=== PATIENT | male | born 1950 | race American Indian/Alaskan Native ===

== ENCOUNTER 2019-08-10 18:29 | Inpatient (IN) | payer MEDICARE ==
[2019-08-10] MEDS ORDERED: ZIPRASIDONE MESYLATE 20 MG VIAL IM PRN (18:51)
[2019-08-10] MEDS ORDERED: MELATONIN 5 MG TAB PO PRN (18:51)
[2019-08-11 08:14] LABS: Hematocrit 37.5 % (35.5-45.6); Hemoglobin 12.2 gm/dl (11.8-15.2); Mean Corpuscular HGB Conc 33 % (32-34); Mean Corpuscular Volume 101 fl (84-94); Red Blood Count 3.72 M/mm3 (3.65-5.03)
[2019-08-11 08:42] LABS: Alanine Aminotransferase 9 units/L (7-56); Albumin 3.3 g/dL (3.9-5); BUN/Creatinine Ratio 22; Blood Urea Nitrogen 20 mg/dL (9-20); Calcium 8.5 mg/dL (8.4-10.2); Hemolysis Index 4; LDL Cholesterol,Direct 60 mg/dL (50-130)
[2019-08-11 08:54] LABS: Platelet Count 93 K/mm3 (140-440)
[2019-08-11 09:13] LABS: Chol/HDL Ratio 4.81 %; HDL Cholesterol 22 mg/dL (40-59)
--- NOTE | 2019-08-11 09:36 | History and Physical Report ---
GP History & Physical - History of Present Illness Date of admission: 08/10/19 Date of Examination: 08/11/19 Reason for Admission: Danger to self History of Present Illness: Maximus Young is a 69y/o male patient who was found walking into oncoming traffic according to chart. During my interview the patient this morning. He is lying in bed with his eyes closed. Easily arouses. He never opens his eyes during the interview. He is a/ o x 3. He is irritable. He is avoidant. He says he's "not doing so good." He could not tell me why or why he was brought to the hospital. He says that he was on medications, "but no anymore because my brother wouldn't take me." He denies hallucinations of any kind. When asking about SI/HI. The patient would not respond initially. He then states, "no, but what's with this." When asking the patient about any illicit drug use in his past, he threw his hand up and stated, "I'm not answering any more questions." PAST PSYCHIATRIC HISTORY: Could not obtain PAST MEDICAL HISTORY: Could not obtain Family Psychiatric History: None reported or documented SOCIAL HISTORY Could not obtain REVIEW OF SYSTEMS Could not obtain MENTAL STATUS EXAMINATION General Appearance: Dressed appropriately Behavior: Irritable, avoidant Mood: "not doing so good" Affect: Restricted Speech: Normal tone and pace Thought Process: Goal directed Thought Content: Suicidal Ideation: Denies Homicidal Ideation: Denies Hallucinations: Denies Delusions: None elicited Insight and Judgment: Limited Memory/Cognition: Limited Assessment Schizoaffective Disorder Treatment Plan Patient will be admitted for inpatient psychiatric evaluation, medication adjustment and close monitoring The patient's behavior, mood, sleep and appetite will be closely monitored. Patient will be enrolled in individual and group therapeutic sessions and encouraged to attend. Patient will be provided with a safe and structured environment. Patient's physical health needs will be addressed by the Hospitalist. Hospitalist Consulted Labs including CBC, CMP, Lipid profile and Hemoglobin A1C ordered Social Assessment will be completed and the Clinical Application Manager will work with patient and family to ensure a suitable and safe disposition Medication adjustment will be made as clinically indicated Usual Wellness Denominational/Preservation: Restarted Home medications The patient agreed on the treatment plan, understood the risk, benefit, alternative treatment, potential consequence of no treatment, and gave informed consent. - Certification Statement This is an acknowledgement statement that Maximus Young is a 69y/o male who requires inpatient psychiatric admission for treatment which could reasonably be expected to improve the patient's condition for Schizoaffective Disorder Estimated period of time patient will need to remain in the hospital: [7] Plan for post-hospital care: [Outpatient] Legal Status: Voluntary Reaction to Hospitalization: Accepting Medications and Allergies Allergies Allergy/AdvReac Type Severity Reaction Status Date / Time No Known Allergies Allergy Unverified 08/10/19 18:16 Home Medications Medication Instructions Recorded Confirmed Last Taken Type Apixaban [Eliquis] 5 mg PO BID 08/11/19 08/11/19 Unknown History Budesonide-Formoterol 160-4.5 08/11/19 Unknown History Divalproex ER [DepaKOTE ER] 500 mg PO BID 08/11/19 08/11/19 Unknown History Eliquis 5 mg PO BID 08/11/19 08/11/19 Unknown History Furosemide [Lasix TAB] 40 mg PO BID 08/11/19 08/11/19 Unknown History Metoprolol SUCCINATE ER TAB 200 mg PO DAILY 08/11/19 08/11/19 Unknown History Vitamin B12 1,000 mcg PO DAILY 08/11/19 08/11/19 Unknown History busPIRone [Buspar] 5 mg PO BID 08/11/19 08/11/19 Unknown History lisinopriL [Zestril] 20 mg PO QDAY 08/11/19 08/11/19 Unknown History polyethylene glycoL 3350 [Miralax 17 gram PO DAILY 08/11/19 08/11/19 Unknown History 3350] risperiDONE [RisperDAL] 1 mg PO DAILY 08/11/19 08/11/19 Unknown History risperiDONE [RisperDAL] 2 mg PO HS 08/11/19 08/11/19 Unknown History Active Meds: Active Medications Melatonin (Melatonin) 5 mg PO QHS PRN PRN Reason: Sleep Trazodone HCl (Desyrel) 50 mg PO QHS LIT Ziprasidone (Geodon) 10 mg IM Q6H PRN PRN Reason: Agitation Results - Results Labs/Vitals: Laboratory Last Values WBC 2.6 K/mm3 (4.5-11.0) L 08/11/19 07:23 RBC 3.72 M/mm3 (3.65-5.03) 08/11/19 07:23 Hgb 12.2 gm/dl (11.8-15.2) 08/11/19 07:23 Hct 37.5 % (35.5-45.6) 08/11/19 07:23 MCV 101 fl (84-94) H 08/11/19 07:23 MCH 33 pg (28-32) H 08/11/19 07:23 MCHC 33 % (32-34) 08/11/19 07:23 RDW 17.0 % (13.2-15.2) H 08/11/19 07:23 Plt Count 93 K/mm3 (140-440) L 08/11/19 07:23 [place] % (Auto) Heater Helper 08/11/19 07:23 Seg Neutrophils % Heater Helper 08/11/19 07:23 Sodium 141 mmol/L (137-145) 08/11/19 07:23 Potassium 4.5 mmol/L (3.6-5.0) 08/11/19 07:23 Chloride 106.4 mmol/L (98-107) 08/11/19 07:23 Carbon Dioxide 23 mmol/L (22-30) 08/11/19 07:23 Anion Gap 16 mmol/L 08/11/19 07:23 BUN 20 mg/dL (9-20) 08/11/19 07:23 Creatinine 0.9 mg/dL (0.8-1.5) 08/11/19 07:23 Estimated GFR > 60 ml/min 08/11/19 07:23 BUN/Creatinine Ratio 22 % 08/11/19 07:23 Glucose 83 mg/dL (75-100) 08/11/19 07:23 Hemoglobin A1c 5.5 % (4-6) 08/11/19 07:23 Calcium 8.5 mg/dL (8.4-10.2) 08/11/19 07:23 Total Bilirubin 0.60 mg/dL (0.1-1.2) 08/11/19 07:23 AST 15 units/L (5-40) 08/11/19 07:23 ALT 9 units/L (7-56) 08/11/19 07:23 Alkaline Phosphatase 81 units/L (35-129) 08/11/19 07:23 Total Protein 7.9 g/dL (6.3-8.2) 08/11/19 07: Albumin 3.3 g/dL (3.9-5) L 08/11/19 07: Albumin/Globulin Ratio 0.7 % 08/11/19 07:23 Triglycerides 117 mg/dL (2-149) 08/11/19 07: Cholesterol 106 mg/dL (50-199) 08/11/19 07:23 LDL Cholesterol Direct 60 mg/dL (50-130) 08/11/19: HDL Cholesterol 22 mg/dL (40-59) L 08/11/19 07:23 Cholesterol/HDL Ratio 4.81 % 08/11/19 07: TSH 2.140 mlU/mL (0.270-4.200) 08/11/19 07:23 Physician Certification - Certification Statement Physician Certification Statement: This is an acknowledgement statement that MAXIMUS YOUNG is a 69 year old M who requires inpatient psychiatric admission for treatment which could reasonably be expected to improve the patient's condition for Estimated period of time patient will need to remain in the hospital: [ ] Plan for post-hospital care: [ ]
[2019-08-11] MEDS ORDERED: risperiDONE 0.25 MG TAB PO SCH ×2 (10:00)
[2019-08-11] MEDS: FUROSEMIDE 40 MG TAB PO SCH ×2 (10:53→21:07)
[2019-08-11] MEDS: risperiDONE 1 MG TAB PO SCH ×2 (10:53→21:07)
[2019-08-11] MEDS: busPIRone 5 MG TAB PO SCH ×2 (10:54→21:07)
[2019-08-11] MEDS: LISINOPRIL 20 MG TAB PO SCH (10:54)
[2019-08-11] MEDS: DIVALPROEX ER 500 MG TAB PO SCH ×2 (10:56→21:08)
--- NOTE | 2019-08-11 12:06 | Consultation ---
History of Present Illness - Reason for Consult Consult date: 08/11/19 Hypertension,afib, COPD Requesting physician: ENRIQUE LAMAS - History of Present Illness Maximus Young is a 69y/o male patient who was found walking into oncoming traffic according to chart.He was diagnosed with schizoaffective disorder. He has history of hypertension,atrial fibrillation and COPD. He is being evaluated to manage co-morbidities. Currently denies chest pain or SOB. No fever. Past History Past Medical History: atrial fib, COPD, hypertension, other (Schisophrenia, PTSD) Social history: full code. denies: smoking, alcohol abuse Medications and Allergies Allergies Allergy/AdvReac Type Severity Reaction Status Date / Time No Known Allergies Allergy Unverified 08/10/19 18:16 Home Medications Medication Instructions Recorded Confirmed Last Taken Type Apixaban [Eliquis] 5 mg PO BID 08/11/19 08/15/19 Unknown History Divalproex ER [Depakote ER] 500 mg PO BID 08/11/19 08/15/19 08/14/19 21:47 History Vitamin B12 1,000 mcg PO DAILY 08/11/19 08/15/19 Unknown History busPIRone [Buspar] 5 mg PO BID 08/11/19 08/15/19 08/14/19 21:46 History lisinopriL [Zestril TAB] 20 mg PO QDAY 08/11/19 08/15/19 08/14/19 10:50 History polyethylene glycoL 3350 [Miralax 17 gram PO DAILY 08/11/19 08/15/19 Unknown History 3350] Arformoterol Nebu [Brovana Nebu] 15 mcg IH Q12HRT #30 ml 08/17/19 Unknown Rx Budesonide [Pulmicort Respules] 0.5 mg IH Q12HRT #30 nebu 08/17/19 Unknown Rx Famotidine [Pepcid] 20 mg PO QDAY #30 tablet 08/17/19 Unknown Rx Furosemide [Lasix TAB] 40 mg PO DAILY #30 08/17/19 Unknown Rx Metoprolol Xl [Metoprolol 100 mg PO QDAY #30 tablet 08/17/19 Unknown Rx SUCCINATE ER TAB] Sertraline [Zoloft] 25 mg PO QDAY #30 tablet 08/17/19 Unknown Rx Tamsulosin [Flomax] 0.4 mg PO QDAY #30 capsule 08/17/19 Unknown Rx VALPROIC ACID Liq [DepaKENE Liq] 500 mg PO BID #100 udc 08/17/19 Unknown Rx Active Meds: Active Medications Buspirone HCl (Buspar) 5 mg PO BID [facility] Last Admin: 08/11/19 10:54 Dose: 5 mg Documented by: Divalproex Sodium (Depakote Er) 500 mg PO BID [facility] Last Admin: 08/11/19 10:56 Dose: 500 mg Documented by: Furosemide (Lasix) 40 mg PO BID [facility] Last Admin: 08/11/19 10:53 Dose: 40 mg Documented by: Lisinopril (Zestril) 20 mg PO QDAY [facility] Last Admin: 08/11/19 10:54 Dose: 20 mg Documented by: Melatonin (Melatonin) 5 mg PO QHS PRN PRN Reason: Sleep Risperidone (Risperdal) 1 mg PO BID [facility] Last Admin: 08/11/19 10:53 Dose: 1 mg Documented by: Trazodone HCl (Desyrel) 50 mg PO QHS [facility] Ziprasidone (Geodon) 10 mg IM Q6H PRN PRN Reason: Agitation Review of Systems All systems: negative (No chest pain, no shortness of breath. All other systems reviewed and are negative.) Exam - Constitutional Vitals: Temp Pulse Resp BP Pulse Ox 63 155/82 08/11/19 10:54 08/11/19 10:54 Results - Labs CBC & Chem 7: 08/11/19 07:23 08/11/19 07:23 Labs: Abnormal lab results 08/11/19 08/11/19 Range/Units 07:23 07:23 WBC 2.6 L (4.5-11.0) K/mm3 MCV 101 H (84-94) fl MCH 33 H (28-32) pg RDW 17.0 H (13.2-15.2) % Plt Count 93 L (140-440) K/mm3 Albumin 3.3 L (3.9-5) g/dL HDL Cholesterol 22 L (40-59) mg/dL Assessment and Plan Schizoaffective disorder. Managed by Psychiatry Hypertension Will monitor BP Atrial fibrillation Stable, rate controlled COPD Stable,asymptomatic Thanks for the consult, Dr. Lamas
[2019-08-11] MEDS ORDERED: METOPROLOL SUCCINATE 200 MG PO SCH (12:15)
[2019-08-11] MEDS ORDERED: NON-FORMULARY EACH (Eliquis 5 MG) PO SCH (12:15)
[2019-08-11] MEDS ORDERED: METOPROLOL SUCCINATE 100 MG PO SCH (12:16)
[2019-08-11] MEDS ORDERED: ALBUTEROL 2.5 MG/3 ML NEBU IH PRN (12:16)
[2019-08-11 12:26] LABS: Basophils % (Manual) 0 % (0.0-1.8); Eosinophils % (Manual) 0 % (0.0-4.3); Total Cells Counted 100
[2019-08-11 12:27] LABS: Platelet Estimate Consistent w Auto; RBC Morphology Normal
[2019-08-11] MEDS ORDERED: METOPROLOL SUCCINATE XL 100 MG TAB PO SCH (13:00)
[2019-08-11] MEDS: APIXABAN 5 MG TAB PO SCH ×2 (13:23→21:07)
[2019-08-11] MEDS: CYANOCOBALAMIN (VIT B-12) 1000 MCG TAB PO SCH (13:25)
[2019-08-11] MEDS: traZODone 50 MG TAB PO SCH (21:08)
--- NOTE | 2019-08-12 08:35 | Progress Note ---
Subjective Date of service: 08/12/19 Principal diagnosis: Schizoaffective Disorder Subjective Comment: The patient's medical record was reviewed and the patient's progress was discussed with the nursing staff. The nursing staff states the patient is stubborn and withdrawn. They state the only thing the patient wants to do is eat and sleep. During my interview with the patient, he is lying in bed, with his eyes closed. He is uncooperative. He never opens his eyes. He states to me, "I cant talk. I can't do nothing but lay here." When asking about any hallucinations, he states, "I've had it. I'm done." When asking the patient about any thoughts of self harm or hurting anyone else, he replies, "that's already done." Reason for continued inpatient treatment: The patient appears to have severe underlying depression; he is avoidant, isolative, and only wants to sleep and eat. MENTAL STATUS EXAMINATION General Appearance: Dressed appropriately Behavior: Avoidant. Uncooperative. Poor eye contact Mood: Irritable Affect: Restricted Speech: Normal tone and pace Thought Process: Goal directed Thought Content: Suicidal Ideation: Denies Homicidal Ideation: Denies Hallucinations: Denies Delusions: None elicited Insight and Judgment: Limited Memory/Cognition: Limited Assessment Schizoaffective Disorder Treatment Plan Patient will be admitted for inpatient psychiatric evaluation, medication adjustment and close monitoring The patient's behavior, mood, sleep and appetite will be closely monitored. Patient will be enrolled in individual and group therapeutic sessions and encouraged to attend. Patient will be provided with a safe and structured environment. Patient's physical health needs will be addressed by the Hospitalist. Hospitalist Consulted Labs including CBC, CMP, Lipid profile and Hemoglobin A1C ordered Social Assessment will be completed and the [place] Hydraulic Press Operator will work with patient and family to ensure a suitable and safe disposition Medication adjustment will be made as clinically indicated Usual Wellness Gnosticism/Preservation: Started Zoloft 25mg po to decrease underlying depression The patient agreed on the treatment plan, understood the risk, benefit, alternative treatment, potential consequence of no treatment, and gave informed consent. Estimated period of time patient will need to remain in the hospital: [7] Plan for post-hospital care: [Outpatient] Medications and Allergies Allergies Allergy/AdvReac Type Severity Reaction Status Date / Time No Known Allergies Allergy Unverified 08/10/19 18:16 Home Medications Medication Instructions Recorded Confirmed Last Taken Type Apixaban [Eliquis] 5 mg PO BID 08/11/19 08/11/19 Unknown History Budesonide-Formoterol 160-4.5 08/11/19 Unknown History Divalproex ER [DepaKOTE ER] 500 mg PO BID 08/11/19 08/11/19 Unknown History Eliquis 5 mg PO BID 08/11/19 08/11/19 Unknown History Furosemide [Lasix TAB] 40 mg PO BID 08/11/19 08/11/19 Unknown History Metoprolol SUCCINATE ER TAB 200 mg PO DAILY 08/11/19 08/11/19 Unknown History Vitamin B12 1,000 mcg PO DAILY 08/11/19 08/11/19 Unknown History busPIRone [Buspar] 5 mg PO BID 08/11/19 08/11/19 Unknown History lisinopriL [Zestril] 20 mg PO QDAY 08/11/19 08/11/19 Unknown History polyethylene glycoL 3350 [Miralax 17 gram PO DAILY 08/11/19 08/11/19 Unknown History 3350] risperiDONE [RisperDAL] 1 mg PO DAILY 08/11/19 08/11/19 Unknown History risperiDONE [RisperDAL] 2 mg PO HS 08/11/19 08/11/19 Unknown History Active Meds: Active Medications Albuterol (Proventil) 2.5 mg IH Q4H PRN PRN Reason: Shortness Of Breath Apixaban (Eliquis) 5 mg PO BID [facility] Last Admin: 08/11/19 21:07 Dose: 5 mg Documented by: Buspirone HCl (Buspar) 5 mg PO BID [facility] Last Admin: 08/11/19 21:07 Dose: 5 mg Documented by: Cyanocobalamin (Vitamin B-12) 1,000 mcg PO QDAY [facility] Last Admin: 08/11/19 13:25 Dose: 1,000 mcg Documented by: Divalproex Sodium (Depakote Er) 500 mg PO BID [facility] Last Admin: 08/11/19 21:08 Dose: 500 mg Documented by: Furosemide (Lasix) 40 mg PO BID [facility] Last Admin: 08/11/19 21:07 Dose: 40 mg Documented by: Lisinopril (Zestril) 20 mg PO QDAY [facility] Last Admin: 08/11/19 10:54 Dose: 20 mg Documented by: Melatonin (Melatonin) 5 mg PO QHS PRN PRN Reason: Sleep Metoprolol Succinate (Metoprolol Xl) 200 mg PO QDAY [facility] Risperidone (Risperdal) 1 mg PO BID [facility] Last Admin: 08/11/19 21:07 Dose: 1 mg Documented by: Trazodone HCl (Desyrel) 50 mg PO QHS [facility] Last Admin: 08/11/19 21:08 Dose: 50 mg Documented by: Ziprasidone (Geodon) 10 mg IM Q6H PRN PRN Reason: Agitation Results - Results Labs/Vitals: Laboratory Last Values WBC 2.6 K/mm3 (4.5-11.0) L 08/11/19 07:23 RBC 3.72 M/mm3 (3.65-5.03) 08/11/19 07:23 Hgb 12.2 gm/dl (11.8-15.2) 08/11/19 07:23 Hct 37.5 % (35.5-45.6) 08/11/19 07:23 MCV 101 fl (84-94) H 08/11/19 07:23 MCH 33 pg (28-32) H 08/11/19 07:23 MCHC 33 % (32-34) 08/11/19 07:23 RDW 17.0 % (13.2-15.2) H 08/11/19 07:23 Plt Count 93 K/mm3 (140-440) L 08/11/19 07:23 [place] % (Auto) Transmission Superintendent 08/11/19 07:23 Add Manual Diff Complete 08/11/19 07:23 Total Counted 100 08/11/19 07:23 Seg Neutrophils % Transmission Superintendent 08/11/19 07:23 Seg Neuts % (Manual) 27.0 % (40.0-70.0) L 08/11/19 07:23 Band Neutrophils % 1.0 % 08/11/19 07:23 Lymphocytes % (Manual) 36.0 % (13.4-35.0) H 08/11/19 07:23 Reactive Lymphs % (Man) 4.0 % 08/11/19 07:23 Monocytes % (Manual) 31.0 % (0.0-7.3) H 08/11/19 07:23 Eosinophils % (Manual) 0 % (0.0-4.3) 08/11/19 07:23 Basophils % (Manual) 0 % (0.0-1.8) 08/11/19 07: Metamyelocytes % 1.0 % 08/11/19 07:23 Myelocytes % 0 % 08/11/19 07: Promyelocytes % 0 % 08/11/19 07:23 Blast Cells % 0 % 08/11/19 07: Nucleated RBC % 1.0 % (0.0-0.9) H 08/11/19 07:23 Seg Neutrophils # Man 0.7 K/mm3 (1.8-7.7) L 08/11/19 07:23 Band Neutrophils # 0.0 K/mm3 08/11/19 07: Lymphocytes # (Manual) 0.9 K/mm3 (1.2-5.4) L 08/11/19 07:23 Abs React Lymphs (Man) 0.1 K/mm3 08/11/19 07: Monocytes # (Manual) 0.8 K/mm3 (0.0-0.8) 08/11/19 07:23 Eosinophils # (Manual) 0.0 K/mm3 (0.0-0.4) 08/11/19 07:23 Basophils # (Manual) 0.0 K/mm3 (0.0-0.1) 08/11/19 07: Metamyelocytes # 0.0 K/mm3 08/11/19 07:23 Myelocytes # 0.0 K/mm3 08/11/19 07:23 Promyelocytes # 0.0 K/mm3 08/11/19 07:23 Blast Cells # 0.0 K/mm3 08/11/19 07:23 WBC Morphology Not Reportable 08/11/19 07:23 WBC Morphology TNR 08/11/19 07:23 Hypersegmented Neuts Not Reportable 08/11/19 07:23 Hyposegmented Neuts Not Reportable 08/11/19 07:23 Hypogranular Neuts Not Reportable 08/11/19 07:23 Smudge Cells Not Reportable 08/11/19 07:23 Toxic Granulation Not Reportable 08/11/19 07:23 Toxic Vacuolation Not Reportable 08/11/19 07:23 Dohle Bodies Not Reportable 08/11/19 07:23 Pelger-Huet Anomaly Not Reportable 08/11/19 07:23 Maxwell Rods Not Reportable 08/11/19 07:23 Platelet Estimate Consistent w auto 08/11/19 07:23 Clumped Platelets Not Reportable 08/11/19 07:23 Plt Clumps, EDTA Not Reportable 08/11/19 07:23 Large Platelets Not Reportable 08/11/19 07:23 Giant Platelets Not Reportable 08/11/19 07:23 Platelet Satelliting Not Reportable 08/11/19 07:23 Plt Morphology Comment Not Reportable 08/11/19 07:23 RBC Morphology Normal 08/11/19 07:23 Dimorphic RBCs Not Reportable 08/11/19 07:23 Polychromasia Not Reportable 08/11/19 07:23 Hypochromasia Not Reportable 08/11/19 07:23 Poikilocytosis Not Reportable 08/11/19 07:23 Anisocytosis Not Reportable 08/11/19 07:23 Microcytosis Not Reportable 08/11/19 07:23 Macrocytosis Not Reportable 08/11/19 07:23 Spherocytes Not Reportable 08/11/19 07:23 Pappenheimer Bodies Not Reportable 08/11/19 07:23 Sickle Cells Not Reportable 08/11/19 07:23 Target Cells Not Reportable 08/11/19 07:23 Tear Drop Cells Not Reportable 08/11/19 07:23 Ovalocytes Not Reportable 08/11/19 07:23 Helmet Cells Not Reportable 08/11/19 07:23 [place] Bodies Not Reportable 08/11/19 07:23 [place] Rings Not Reportable 08/11/19 07:23 [place] Cells Not Reportable 08/11/19 07:23 Bite Cells Not Reportable 08/11/19 07:23 Crenated Cell Not Reportable 08/11/19 07:23 Elliptocytes Not Reportable 08/11/19 07:23 Acanthocytes (Spur) Not Reportable 08/11/19 07:23 Rouleaux Not Reportable 08/11/19 07:23 Hemoglobin C Crystals Not Reportable 08/11/19 07:23 Schistocytes Not Reportable 08/11/19 07:23 Malaria parasites Not Reportable 08/11/19 07:23 Davian Bodies Not Reportable 08/11/19 07:23 Hem Pathologist Commnt No 08/11/19 07:23 Sodium 141 mmol/L (137-145) 08/11/19 07:23 Potassium 4.5 mmol/L (3.6-5.0) 08/11/19 07:23 Chloride 106.4 mmol/L (98-107) 08/11/19 07:23 Carbon Dioxide 23 mmol/L (22-30) 08/11/19 07:23 Anion Gap 16 mmol/L 08/11/19 07:23 BUN 20 mg/dL (9-20) 08/11/19 07:23 Creatinine 0.9 mg/dL (0.8-1.5) 08/11/19 07:23 Estimated GFR > 60 ml/min 08/11/19 07:23 BUN/Creatinine Ratio 22 % 08/11/19 07:23 Glucose 83 mg/dL (75-100) 08/11/19 07:23 POC Glucose 192 (70-105) H 08/11/19 18:38 Hemoglobin A1c 5.5 % (4-6) 08/11/19 07:23 Calcium 8.5 mg/dL (8.4-10.2) 08/11/19 07:23 Total Bilirubin 0.60 mg/dL (0.1-1.2) 08/11/19 07:23 AST 15 units/L (5-40) 08/11/19 07:23 ALT 9 units/L (7-56) 08/11/19 07:23 Alkaline Phosphatase 81 units/L (35-129) 08/11/19 07:23 Total Protein 7.9 g/dL (6.3-8.2) 08/11/19 07:23 Albumin 3.3 g/dL (3.9-5) L 08/11/19 07:23 Albumin/Globulin Ratio 0.7 % 08/11/19 07:23 Triglycerides 117 mg/dL (2-149) 08/11/19 07:23 Cholesterol 106 mg/dL (50-199) 08/11/19 07:23 LDL Cholesterol Direct 60 mg/dL (50-130) 08/11/19 07:23 HDL Cholesterol 22 mg/dL (40-59) L 08/11/19 07:23 Cholesterol/HDL Ratio 4.81 % 08/11/19 07:23 TSH 2.140 mlU/mL (0.270-4.200) 08/11/19 07:23 Last Vital Signs Temp 97.3 F L 08/11/19 22:03 Pulse 100 H 08/11/19 22:03 Resp 20 08/11/19 22:03 BP 99/63 08/11/19 22:03 Pulse Ox 96 08/11/19 22:03
[2019-08-12] MEDS ORDERED: VITAMIN B12 1000 MCG PO SCH (10:00)
[2019-08-12] MEDS: FUROSEMIDE 40 MG TAB PO SCH ×2 (11:26→21:26)
[2019-08-12] MEDS: METOPROLOL SUCCINATE XL 100 MG TAB PO SCH (11:26)
[2019-08-12] MEDS: LISINOPRIL 20 MG TAB PO SCH (11:27)
[2019-08-12] MEDS: APIXABAN 5 MG TAB PO SCH ×2 (11:39→21:26)
[2019-08-12] MEDS: DIVALPROEX ER 500 MG TAB PO SCH ×2 (11:39→21:26)
[2019-08-12] MEDS: CYANOCOBALAMIN (VIT B-12) 1000 MCG TAB PO SCH ×2 (11:41→11:54)
[2019-08-12] MEDS: SERTRALINE 25 MG TAB PO SCH ×2 (11:41→11:54)
[2019-08-12] MEDS: busPIRone 5 MG TAB PO SCH ×3 (11:41→21:26)
[2019-08-12] MEDS: risperiDONE 1 MG TAB PO SCH ×3 (11:41→21:26)
[2019-08-12] MEDS: traZODone 50 MG TAB PO SCH (21:26)
--- NOTE | 2019-08-13 08:25 | Progress Note ---
Subjective Date of service: 08/13/19 Principal diagnosis: Schizoaffective Disorder Subjective Comment: The patient's medical record was reviewed and the patient's progress was discussed with the nursing staff. The nursing staff states the patient is irritable, does not want to respond to questions/participate in his care, isolated to self, non compliant with meds, refused breakfast/lunch and does not like to drink fluids either. During my interview with the patient, he is lying in bed, with his eyes closed. He easily arouses but, keeps his eyes closed during the interview. He is oriented x 3. He is withdrawn and avoidant. He states to me, "I'm out. I can't get up," upon entering his room. When asked about SI/HI, the patient replies, "no, but I feel like I'm dying." He then states, "I couldn't breath last night." When asking about any hallucinations, the patient replied, "I think so." He did not provide an answer when asking the patient to explain what he meant. Reason for continued inpatient treatment: The patient appears to have severe underlying depression; he is avoidant, isolative, and has starting refusing meals. The patient also has passive suicidal thoughts. MENTAL STATUS EXAMINATION General Appearance: Dressed appropriately Behavior: Avoidant. Withdrawn. Uncooperative. Poor eye contact Mood: Irritable Affect: Restricted Speech: Normal tone and pace Thought Process: Goal directed Thought Content: Suicidal Ideation: Passive Homicidal Ideation: Denies Hallucinations: Delusions: None elicited Insight and Judgment: Limited Memory/Cognition: Limited Assessment Schizoaffective Disorder Treatment Plan Patient will be admitted for inpatient psychiatric evaluation, medication adjustment and close monitoring The patient's behavior, mood, sleep and appetite will be closely monitored. Patient will be enrolled in individual and group therapeutic sessions and encouraged to attend. Patient will be provided with a safe and structured environment. Patient's physical health needs will be addressed by the Hospitalist. Hospitalist Consulted Labs including CBC, CMP, Lipid profile and Hemoglobin A1C ordered Social Assessment will be completed and the Drill Sergeant will work with patient and family to ensure a suitable and safe disposition Medication adjustment will be made as clinically indicated Usual Wellness Judaism/Preservation: Increased Zoloft 50mg po to decrease underlying depression Will consider Megace if the patient continues to refuse meals The patient agreed on the treatment plan, understood the risk, benefit, alternative treatment, potential consequence of no treatment, and gave informed consent. Estimated period of time patient will need to remain in the hospital: [6] Plan for post-hospital care: [Outpatient] Medications and Allergies Allergies Allergy/AdvReac Type Severity Reaction Status Date / Time No Known Allergies Allergy Unverified 08/10/19 18:16 Home Medications Medication Instructions Recorded Confirmed Last Taken Type Apixaban [Eliquis] 5 mg PO BID 08/11/19 08/11/19 Unknown History Budesonide-Formoterol 160-4.5 08/11/19 Unknown History Divalproex ER [DepaKOTE ER] 500 mg PO BID 08/11/19 08/11/19 Unknown History Eliquis 5 mg PO BID 08/11/19 08/11/19 Unknown History Furosemide [Lasix TAB] 40 mg PO BID 08/11/19 08/11/19 Unknown History Metoprolol SUCCINATE ER TAB 200 mg PO DAILY 08/11/19 08/11/19 Unknown History Vitamin B12 1,000 mcg PO DAILY 08/11/19 08/11/19 Unknown History busPIRone [Buspar] 5 mg PO BID 08/11/19 08/11/19 Unknown History lisinopriL [Zestril] 20 mg PO QDAY 08/11/19 08/11/19 Unknown History polyethylene glycoL 3350 [Miralax 17 gram PO DAILY 08/11/19 08/11/19 Unknown History 3350] risperiDONE [RisperDAL] 1 mg PO DAILY 08/11/19 08/11/19 Unknown History risperiDONE [RisperDAL] 2 mg PO HS 08/11/19 08/11/19 Unknown History Active Meds: Active Medications Albuterol (Proventil) 2.5 mg IH Q4H PRN PRN Reason: Shortness Of Breath Apixaban (Eliquis) 5 mg PO BID [facility] Last Admin: 08/12/19 21:26 Dose: 5 mg Documented by: Buspirone HCl (Buspar) 5 mg PO BID [facility] Last Admin: 08/12/19 21:26 Dose: 5 mg Documented by: Cyanocobalamin (Vitamin B-12) 1,000 mcg PO QDAY [facility] Last Admin: 08/12/19 11:54 Dose: Not Given Documented by: Divalproex Sodium (Depakote Er) 500 mg PO BID [facility] Last Admin: 08/12/19 21:26 Dose: 500 mg Documented by: Furosemide (Lasix) 40 mg PO BID [facility] Last Admin: 08/12/19 21:26 Dose: 40 mg Documented by: Lisinopril (Zestril) 20 mg PO QDAY [facility] Last Admin: 08/12/19 11:27 Dose: Not Given Documented by: Melatonin (Melatonin) 5 mg PO QHS PRN PRN Reason: Sleep Metoprolol Succinate (Metoprolol Xl) 200 mg PO QDAY [facility] Last Admin: 08/12/19 11:26 Dose: Not Given Documented by: Risperidone (Risperdal) 1 mg PO BID [facility] Last Admin: 08/12/19 21:26 Dose: 1 mg Documented by: Sertraline HCl (Zoloft) 25 mg PO QDAY [facility] Last Admin: 08/12/19 11:54 Dose: Not Given Documented by: Trazodone HCl (Desyrel) 50 mg PO QHS [facility] Last Admin: 08/12/19 21:26 Dose: 50 mg Documented by: Ziprasidone (Geodon) 10 mg IM Q6H PRN PRN Reason: Agitation Results - Results Labs/Vitals: Laboratory Last Values WBC 2.6 K/mm3 (4.5-11.0) L 08/11/19 07:23 RBC 3.72 M/mm3 (3.65-5.03) 08/11/19 07:23 Hgb 12.2 gm/dl (11.8-15.2) 08/11/19 07:23 Hct 37.5 % (35.5-45.6) 08/11/19 07:23 MCV 101 fl (84-94) H 08/11/19 07:23 MCH 33 pg (28-32) H 08/11/19 07:23 MCHC 33 % (32-34) 08/11/19 07:23 RDW 17.0 % (13.2-15.2) H 08/11/19 07:23 Plt Count 93 K/mm3 (140-440) L 08/11/19 07:23 [place] % (Auto) Teller Supervisor 08/11/19 07:23 Add Manual Diff Complete 08/11/19 07:23 Total Counted 100 08/11/19 07:23 Seg Neutrophils % Teller Supervisor 08/11/19 07:23 Seg Neuts % (Manual) 27.0 % (40.0-70.0) L 08/11/19 07:23 Band Neutrophils % 1.0 % 08/11/19 07:23 Lymphocytes % (Manual) 36.0 % (13.4-35.0) H 08/11/19 07:23 Reactive Lymphs % (Man) 4.0 % 08/11/19 07:23 Monocytes % (Manual) 31.0 % (0.0-7.3) H 08/11/19 07:23 Eosinophils % (Manual) 0 % (0.0-4.3) 08/11/19 07:23 Basophils % (Manual) 0 % (0.0-1.8) 08/11/19 07: Metamyelocytes % 1.0 % 08/11/19 07: Myelocytes % 0 % 08/11/19 07: Promyelocytes % 0 % 08/11/19 07: Blast Cells % 0 % 08/11/19 07: Nucleated RBC % 1.0 % (0.0-0.9) H 08/11/19 07:23 Seg Neutrophils # Man 0.7 K/mm3 (1.8-7.7) L 08/11/19 07:23 Band Neutrophils # 0.0 K/mm3 08/11/19 07: Lymphocytes # (Manual) 0.9 K/mm3 (1.2-5.4) L 08/11/19 07:23 Abs React Lymphs (Man) 0.1 K/mm3 08/11/19 07: Monocytes # (Manual) 0.8 K/mm3 (0.0-0.8) 08/11/19 07:23 Eosinophils # (Manual) 0.0 K/mm3 (0.0-0.4) 08/11/19 07:23 Basophils # (Manual) 0.0 K/mm3 (0.0-0.1) 08/11/19 07: Metamyelocytes # 0.0 K/mm3 08/11/19 07:23 Myelocytes # 0.0 K/mm3 08/11/19 07:23 Promyelocytes # 0.0 K/mm3 08/11/19 07:23 Blast Cells # 0.0 K/mm3 08/11/19 07:23 WBC Morphology Not Reportable 08/11/19 07:23 WBC Morphology TNR 08/11/19 07:23 Hypersegmented Neuts Not Reportable 08/11/19 07:23 Hyposegmented Neuts Not Reportable 08/11/19 07:23 Hypogranular Neuts Not Reportable 08/11/19 07:23 Smudge Cells Not Reportable 08/11/19 07:23 Toxic Granulation Not Reportable 08/11/19 07:23 Toxic Vacuolation Not Reportable 08/11/19 07:23 Dohle Bodies Not Reportable 08/11/19 07:23 Pelger-Huet Anomaly Not Reportable 08/11/19 07:23 Maxwell Rods Not Reportable 08/11/19 07:23 Platelet Estimate Consistent w auto 08/11/19 07:23 Clumped Platelets Not Reportable 08/11/19 07:23 Plt Clumps, EDTA Not Reportable 08/11/19 07:23 Large Platelets Not Reportable 08/11/19 07:23 Giant Platelets Not Reportable 08/11/19 07:23 Platelet Satelliting Not Reportable 08/11/19 07:23 Plt Morphology Comment Not Reportable 08/11/19 07:23 RBC Morphology Normal 08/11/19 07:23 Dimorphic RBCs Not Reportable 08/11/19 07:23 Polychromasia Not Reportable 08/11/19 07:23 Hypochromasia Not Reportable 08/11/19 07:23 Poikilocytosis Not Reportable 08/11/19 07:23 Anisocytosis Not Reportable 08/11/19 07:23 Microcytosis Not Reportable 08/11/19 07:23 Macrocytosis Not Reportable 08/11/19 07:23 Spherocytes Not Reportable 08/11/19 07:23 Pappenheimer Bodies Not Reportable 08/11/19 07:23 Sickle Cells Not Reportable 08/11/19 07:23 Target Cells Not Reportable 08/11/19 07:23 Tear Drop Cells Not Reportable 08/11/19 07:23 Ovalocytes Not Reportable 08/11/19 07:23 Helmet Cells Not Reportable 08/11/19 07:23 Abraham-[place] Bodies Not Reportable 08/11/19 07:23 [place] Rings Not Reportable 08/11/19 07:23 Christine Cells Not Reportable 08/11/19 07:23 Bite Cells Not Reportable 08/11/19 07:23 Crenated Cell Not Reportable 08/11/19 07:23 Elliptocytes Not Reportable 08/11/19 07:23 Acanthocytes (Spur) Not Reportable 08/11/19 07:23 Rouleaux Not Reportable 08/11/19 07:23 Hemoglobin C Crystals Not Reportable 08/11/19 07:23 Schistocytes Not Reportable 08/11/19 07:23 Malaria parasites Not Reportable 08/11/19 07:23 Davian Bodies Not Reportable 08/11/19 07:23 Hem Pathologist Commnt No 08/11/19 07:23 Sodium 141 mmol/L (137-145) 08/11/19 07:23 Potassium 4.5 mmol/L (3.6-5.0) 08/11/19 07:23 Chloride 106.4 mmol/L (98-107) 08/11/19 07:23 Carbon Dioxide 23 mmol/L (22-30) 08/11/19 07:23 Anion Gap 16 mmol/L 08/11/19 07:23 BUN 20 mg/dL (9-20) 08/11/19 07:23 Creatinine 0.9 mg/dL (0.8-1.5) 08/11/19 07:23 Estimated GFR > 60 ml/min 08/11/19 07:23 BUN/Creatinine Ratio 22 % 08/11/19 07:23 Glucose 83 mg/dL (75-100) 08/11/19 07:23 POC Glucose 192 (70-105) H 08/11/19 18:38 Hemoglobin A1c 5.5 % (4-6) 08/11/19 07:23 Calcium 8.5 mg/dL (8.4-10.2) 08/11/19 07:23 Total Bilirubin 0.60 mg/dL (0.1-1.2) 08/11/19 07:23 AST 15 units/L (5-40) 08/11/19 07:23 ALT 9 units/L (7-56) 08/11/19 07:23 Alkaline Phosphatase 81 units/L (35-129) 08/11/19 07:23 Total Protein 7.9 g/dL (6.3-8.2) 08/11/19 07:23 Albumin 3.3 g/dL (3.9-5) L 08/11/19 07:23 Albumin/Globulin Ratio 0.7 % 08/11/19 07:23 Triglycerides 117 mg/dL (2-149) 08/11/19 07:23 Cholesterol 106 mg/dL (50-199) 08/11/19 07:23 LDL Cholesterol Direct 60 mg/dL (50-130) 08/11/19 07:23 HDL Cholesterol 22 mg/dL (40-59) L 08/11/19 07:23 Cholesterol/HDL Ratio 4.81 % 08/11/19 07:23 TSH 2.140 mlU/mL (0.270-4.200) 08/11/19 07:23 Last Vital Signs Temp 98.6 F 08/12/19 19:40 Pulse 118 H 08/12/19 19:40 Resp 20 08/12/19 19:40 BP 106/65 08/12/19 19:40 Pulse Ox 90 08/12/19 19:40
[2019-08-13] MEDS: METOPROLOL SUCCINATE XL 100 MG TAB PO SCH (09:55)
[2019-08-13] MEDS: LISINOPRIL 20 MG TAB PO SCH (09:56)
[2019-08-13] MEDS: risperiDONE 1 MG TAB PO SCH ×2 (09:57→22:00)
[2019-08-13] MEDS: DIVALPROEX ER 500 MG TAB PO SCH ×2 (09:57→22:01)
[2019-08-13] MEDS: CYANOCOBALAMIN (VIT B-12) 1000 MCG TAB PO SCH (09:57)
[2019-08-13] MEDS: FUROSEMIDE 40 MG TAB PO SCH ×2 (09:57→22:01)
[2019-08-13] MEDS: busPIRone 5 MG TAB PO SCH ×2 (09:57→22:00)
[2019-08-13] MEDS: APIXABAN 5 MG TAB PO SCH ×2 (09:57→22:01)
[2019-08-13] MEDS: SERTRALINE 50 MG TAB PO SCH (09:57)
[2019-08-13] MEDS: traZODone 50 MG TAB PO SCH (22:00)
--- NOTE | 2019-08-14 07:57 | Progress Note ---
Subjective Date of service: 08/14/19 Principal diagnosis: Schizoaffective Disorder Subjective Comment: The patient's medical record was reviewed and the patient's progress was discussed with the nursing staff. The nursing staff states the patient spent the entire evening in his room. He would not interact with staff. He was irritable with staff tried to talk to him. He presented as sleeping the entire shift. During my interview with the patient, he is lying in bed, with his eyes closed. He easily arouses but, but as usual, keeps his eyes closed during the interview. He is oriented x 3. He is withdrawn and avoidant. He states, "not so good" when asking the patient how was he doing. He verbalized being "depressed," when asked to elaborate. The patient denies hallucinations of any kind, stating, "no, just your voice and I see just you." He did not answer when asked about any harmful o r endangering thoughts or feelings. Reason for continued inpatient treatment: The patient appears to have severe underlying depression; he is avoidant, isolative, excessive sleeping, and may be having passive thoughts of dying. MENTAL STATUS EXAMINATION General Appearance: Dressed appropriately Behavior: Avoidant. Withdrawn. Uncooperative. Poor eye contact Mood: Flat Affect: Restricted Speech: Normal tone and pace Thought Process: Goal directed Thought Content: Suicidal Ideation: Passive Homicidal Ideation: Denies Hallucinations: Denies Delusions: None elicited Insight and Judgment: Limited Memory/Cognition: Limited Assessment Schizoaffective Disorder Treatment Plan Patient will be admitted for inpatient psychiatric evaluation, medication adjustment and close monitoring The patient's behavior, mood, sleep and appetite will be closely monitored. Patient will be enrolled in individual and group therapeutic sessions and encouraged to attend. Patient will be provided with a safe and structured environment. Patient's physical health needs will be addressed by the Hospitalist. Hospitalist Consulted Labs including CBC, CMP, Lipid profile and Hemoglobin A1C ordered Valproic Avid level ordered 08/15/2019 Social Assessment will be completed and the Mix Technician will work with patient and family to ensure a suitable and safe disposition Medication adjustment will be made as clinically indicated Usual Wellness Temple/Preservation: Increased Risperidone 2mg po BID to improve mood Increased Depakote ER 500mg po TID The patient agreed on the treatment plan, understood the risk, benefit, alternative treatment, potential consequence of no treatment, and gave informed consent. Estimated period of time patient will need to remain in the hospital: [6] Plan for post-hospital care: [Outpatient] Medications and Allergies Allergies Allergy/AdvReac Type Severity Reaction Status Date / Time No Known Allergies Allergy Unverified 08/10/19 18:16 Home Medications Medication Instructions Recorded Confirmed Last Taken Type Apixaban [Eliquis] 5 mg PO BID 08/11/19 08/11/19 Unknown History Budesonide-Formoterol 160-4.5 2 puff PO BID 08/11/19 08/14/19 Unknown History Divalproex ER [DepaKOTE ER] 500 mg PO BID 08/11/19 08/11/19 Unknown History Eliquis 5 mg PO BID 08/11/19 08/11/19 Unknown History Furosemide [Lasix TAB] 40 mg PO BID 08/11/19 08/11/19 Unknown History Metoprolol SUCCINATE ER TAB 200 mg PO DAILY 08/11/19 08/11/19 Unknown History Vitamin B12 1,000 mcg PO DAILY 08/11/19 08/11/19 Unknown History busPIRone [Buspar] 5 mg PO BID 08/11/19 08/11/19 Unknown History lisinopriL [Zestril] 20 mg PO QDAY 08/11/19 08/11/19 Unknown History polyethylene glycoL 3350 [Miralax 17 gram PO DAILY 08/11/19 08/11/19 Unknown History 3350] risperiDONE [RisperDAL] 1 mg PO DAILY 08/11/19 08/11/19 Unknown History risperiDONE [RisperDAL] 2 mg PO HS 08/11/19 08/11/19 Unknown History Active Meds: Active Medications Albuterol (Proventil) 2.5 mg IH Q4H PRN PRN Reason: Shortness Of Breath Apixaban (Eliquis) 5 mg PO BID [facility] Last Admin: 08/13/19 22:01 Dose: 5 mg Documented by: Buspirone HCl (Buspar) 5 mg PO BID [facility] Last Admin: 08/13/19 22:00 Dose: 5 mg Documented by: Cyanocobalamin (Vitamin B-12) 1,000 mcg PO QDAY [facility] Last Admin: 08/13/19 09:57 Dose: 1,000 mcg Documented by: Divalproex Sodium (Depakote Er) 500 mg PO BID [facility] Last Admin: 08/13/19 22:01 Dose: 500 mg Documented by: Furosemide (Lasix) 40 mg PO BID [facility] Last Admin: 08/13/19 22:01 Dose: 40 mg Documented by: Lisinopril (Zestril) 20 mg PO QDAY [facility] Last Admin: 08/13/19 09:56 Dose: Not Given Documented by: Melatonin (Melatonin) 5 mg PO QHS PRN PRN Reason: Sleep Metoprolol Succinate (Metoprolol Xl) 200 mg PO QDAY [facility] Last Admin: 08/13/19 09:55 Dose: Not Given Documented by: Risperidone (Risperdal) 1 mg PO BID [facility] Last Admin: 08/13/19 22:00 Dose: 1 mg Documented by: Sertraline HCl (Zoloft) 50 mg PO QDAY [facility] Last Admin: 08/13/19 09:57 Dose: 50 mg Documented by: Trazodone HCl (Desyrel) 50 mg PO QHS [facility] Last Admin: 08/13/19 22:00 Dose: 50 mg Documented by: Ziprasidone (Geodon) 10 mg IM Q6H PRN PRN Reason: Agitation Results - Results Labs/Vitals: Laboratory Last Values WBC 2.6 K/mm3 (4.5-11.0) L 08/11/19 07:23 RBC 3.72 M/mm3 (3.65-5.03) 08/11/19 07:23 Hgb 12.2 gm/dl (11.8-15.2) 08/11/19 07:23 Hct 37.5 % (35.5-45.6) 08/11/19 07:23 MCV 101 fl (84-94) H 08/11/19 07:23 MCH 33 pg (28-32) H 08/11/19 07:23 MCHC 33 % (32-34) 08/11/19 07:23 RDW 17.0 % (13.2-15.2) H 08/11/19 07:23 Plt Count 93 K/mm3 (140-440) L 08/11/19 07:23 [place] % (Auto) Clinical Exercise Specialist 08/11/19 07:23 Add Manual Diff Complete 08/11/19 07:23 Total Counted 100 08/11/19 07:23 Seg Neutrophils % Clinical Exercise Specialist 08/11/19 07:23 Seg Neuts % (Manual) 27.0 % (40.0-70.0) L 08/11/19 07:23 Band Neutrophils % 1.0 % 08/11/19 07:23 Lymphocytes % (Manual) 36.0 % (13.4-35.0) H 08/11/19 07:23 Reactive Lymphs % (Man) 4.0 % 08/11/19 07:23 Monocytes % (Manual) 31.0 % (0.0-7.3) H 08/11/19 07:23 Eosinophils % (Manual) 0 % (0.0-4.3) 08/11/19 07:23 Basophils % (Manual) 0 % (0.0-1.8) 08/11/19 07: Metamyelocytes % 1.0 % 08/11/19 07: Myelocytes % 0 % 08/11/19 07: Promyelocytes % 0 % 08/11/19 07: Blast Cells % 0 % 08/11/19 07: Nucleated RBC % 1.0 % (0.0-0.9) H 08/11/19 07:23 Seg Neutrophils # Man 0.7 K/mm3 (1.8-7.7) L 08/11/19 07:23 Band Neutrophils # 0.0 K/mm3 08/11/19 07:23 Lymphocytes # (Manual) 0.9 K/mm3 (1.2-5.4) L 08/11/19 07:23 Abs React Lymphs (Man) 0.1 K/mm3 08/11/19 07:23 Monocytes # (Manual) 0.8 K/mm3 (0.0-0.8) 08/11/19 07:23 Eosinophils # (Manual) 0.0 K/mm3 (0.0-0.4) 08/11/19 07:23 Basophils # (Manual) 0.0 K/mm3 (0.0-0.1) 08/11/19 07: Metamyelocytes # 0.0 K/mm3 08/11/19 07:23 Myelocytes # 0.0 K/mm3 08/11/19 07:23 Promyelocytes # 0.0 K/mm3 08/11/19 07:23 Blast Cells # 0.0 K/mm3 08/11/19 07:23 WBC Morphology Not Reportable 08/11/19 07:23 WBC Morphology TNR 08/11/19 07:23 Hypersegmented Neuts Not Reportable 08/11/19 07:23 Hyposegmented Neuts Not Reportable 08/11/19 07:23 Hypogranular Neuts Not Reportable 08/11/19 07:23 Smudge Cells Not Reportable 08/11/19 07:23 Toxic Granulation Not Reportable 08/11/19 07:23 Toxic Vacuolation Not Reportable 08/11/19 07:23 Dohle Bodies Not Reportable 08/11/19 07:23 Pelger-Huet Anomaly Not Reportable 08/11/19 07:23 Maxwell Rods Not Reportable 08/11/19 07:23 Platelet Estimate Consistent w auto 08/11/19 07:23 Clumped Platelets Not Reportable 08/11/19 07:23 Plt Clumps, EDTA Not Reportable 08/11/19 07:23 Large Platelets Not Reportable 08/11/19 07:23 Giant Platelets Not Reportable 08/11/19 07:23 Platelet Satelliting Not Reportable 08/11/19 07:23 Plt Morphology Comment Not Reportable 08/11/19 07:23 RBC Morphology Normal 08/11/19 07:23 Dimorphic RBCs Not Reportable 08/11/19 07:23 Polychromasia Not Reportable 08/11/19 07:23 Hypochromasia Not Reportable 08/11/19 07:23 Poikilocytosis Not Reportable 08/11/19 07:23 Anisocytosis Not Reportable 08/11/19 07:23 Microcytosis Not Reportable 08/11/19 07:23 Macrocytosis Not Reportable 08/11/19 07:23 Spherocytes Not Reportable 08/11/19 07:23 Pappenheimer Bodies Not Reportable 08/11/19 07:23 Sickle Cells Not Reportable 08/11/19 07:23 Target Cells Not Reportable 08/11/19 07:23 Tear Drop Cells Not Reportable 08/11/19 07:23 Ovalocytes Not Reportable 08/11/19 07:23 Helmet Cells Not Reportable 08/11/19 07:23 [place] Bodies Not Reportable 08/11/19 07:23 [place] Rings Not Reportable 08/11/19 07:23 Christine Cells Not Reportable 05/23/20 07:23 Bite Cells Not Reportable 08/11/19 07:23 Crenated Cell Not Reportable 08/11/19 07:23 Elliptocytes Not Reportable 08/11/19 07:23 Acanthocytes (Spur) Not Reportable 08/11/19 07:23 Rouleaux Not Reportable 08/11/19 07:23 Hemoglobin C Crystals Not Reportable 08/11/19 07:23 Schistocytes Not Reportable 08/11/19 07:23 Malaria parasites Not Reportable 08/11/19 07:23 Davian Bodies Not Reportable 08/11/19 07:23 Hem Pathologist Commnt No 08/11/19 07:23 Sodium 141 mmol/L (137-145) 08/11/19 07:23 Potassium 4.5 mmol/L (3.6-5.0) 08/11/19 07:23 Chloride 106.4 mmol/L (98-107) 08/11/19 07:23 Carbon Dioxide 23 mmol/L (22-30) 08/11/19 07:23 Anion Gap 16 mmol/L 08/11/19 07:23 BUN 20 mg/dL (9-20) 08/11/19 07:23 Creatinine 0.9 mg/dL (0.8-1.5) 08/11/19 07:23 Estimated GFR > 60 ml/min 08/11/19 07:23 BUN/Creatinine Ratio 22 % 08/11/19 07:23 Glucose 83 mg/dL (75-100) 08/11/19 07:23 POC Glucose 192 (70-105) H 08/11/19 18:38 Hemoglobin A1c 5.5 % (4-6) 08/11/19 07:23 Calcium 8.5 mg/dL (8.4-10.2) 08/11/19 07:23 Total Bilirubin 0.60 mg/dL (0.1-1.2) 08/11/19 07:23 AST 15 units/L (5-40) 08/11/19 07:23 ALT 9 units/L (7-56) 08/11/19 07:23 Alkaline Phosphatase 81 units/L (35-129) 08/11/19 07:23 Total Protein 7.9 g/dL (6.3-8.2) 08/11/19 07:23 Albumin 3.3 g/dL (3.9-5) L 08/11/19 07:23 Albumin/Globulin Ratio 0.7 % 08/11/19 07:23 Triglycerides 117 mg/dL (2-149) 08/11/19 07:23 Cholesterol 106 mg/dL (50-199) 08/11/19 07:23 LDL Cholesterol Direct 60 mg/dL (50-130) 08/11/19 07:23 HDL Cholesterol 22 mg/dL (40-59) L 08/11/19 07:23 Cholesterol/HDL Ratio 4.81 % 08/11/19 07:23 TSH 2.140 mlU/mL (0.270-4.200) 08/11/19 07:23 Last Vital Signs Temp 98.6 F 08/12/19 19:40 Pulse 60 08/13/19 09:56 Resp 20 08/12/19 19:40 BP 93/63 08/13/19 09:56 Pulse Ox 90 08/12/19 19:40
[2019-08-14] MEDS: risperiDONE 1 MG TAB PO SCH ×2 (10:49→21:47)
[2019-08-14] MEDS: FUROSEMIDE 40 MG TAB PO SCH ×2 (10:49→21:48)
[2019-08-14] MEDS: SERTRALINE 50 MG TAB PO SCH (10:49)
[2019-08-14] MEDS: DIVALPROEX ER 500 MG TAB PO SCH ×3 (10:49→21:47)
[2019-08-14] MEDS: APIXABAN 5 MG TAB PO SCH ×2 (10:50→21:46)
[2019-08-14] MEDS: busPIRone 5 MG TAB PO SCH ×2 (10:50→21:46)
[2019-08-14] MEDS: LISINOPRIL 20 MG TAB PO SCH (10:50)
[2019-08-14] MEDS: METOPROLOL SUCCINATE XL 100 MG TAB PO SCH (10:51)
[2019-08-14] MEDS: CYANOCOBALAMIN (VIT B-12) 1000 MCG TAB PO SCH (10:52)
[2019-08-14] MEDS: traZODone 50 MG TAB PO SCH ×2 (21:46→21:49)
[2019-08-15 00:55] VITALS: BP 69/42
--- NOTE | 2019-08-15 08:13 | Discharge Summary ---
Providers - Providers Date of Admission: 08/10/19 23:10 Date of discharge: 08/14/19 Attending physician: ENRIQUE LAMAS MD 08/10/19 18:45 Consult to Physician [CONS] Routine Comment: Consulting Provider: NII HOWARD Physician Instructions: Reason For Exam: manage medical conditions Primary care physician: ENRIQUE LAMAS MD Hospitalization Reason for admission: Found walking into oncoming traffic Condition: Critical Hospital course: The patient was provided inpatient psychiatric treatment with safe and supportive environment, group therapy, psychiatric medication, medication adjustment, adverse effect monitor, medical evaluation, medical treatment, social service assessment, social support meeting and placement assessment. The patient was transferred to the medical floor on 08/15/19 for medical stabilization after he was found to be hypotensive and tachycardic. Dis[facility]: / [facility] IP Allergies/Adverse Reactions: Allergies No Known Allergies Allergy (Unverified 08/10/19 18:16) Vital Signs: Last Vital Signs Temp 98.5 F 08/14/19 23:45 Pulse 117 H 08/14/19 23:45 Resp 20 08/14/19 23:45 BP 69/42 08/14/19 23:45 Pulse Ox 86 08/14/19 23:45 Last Lab: Laboratory Last Values WBC 2.6 K/mm3 (4.5-11.0) L 08/11/19 07:23 RBC 3.72 M/mm3 (3.65-5.03) 08/11/19 07:23 Hgb 12.2 gm/dl (11.8-15.2) 08/11/19 07:23 Hct 37.5 % (35.5-45.6) 08/11/19 07:23 MCV 101 fl (84-94) H 08/11/19 07:23 MCH 33 pg (28-32) H 08/11/19 07:23 MCHC 33 % (32-34) 08/11/19 07:23 RDW 17.0 % (13.2-15.2) H 08/11/19 07:23 Plt Count 93 K/mm3 (140-440) L 08/11/19 07:23 [place] % (Auto) Software Administrator 08/11/19 07:23 Add Manual Diff Complete 08/11/19 07:23 Total Counted 100 08/11/19 07:23 Seg Neutrophils % Software Administrator 08/11/19 07:23 Seg Neuts % (Manual) 27.0 % (40.0-70.0) L 08/11/19 07:23 Band Neutrophils % 1.0 % 08/11/19 07:23 Lymphocytes % (Manual) 36.0 % (13.4-35.0) H 08/11/19 07:23 Reactive Lymphs % (Man) 4.0 % 08/11/19 07:23 Monocytes % (Manual) 31.0 % (0.0-7.3) H 08/11/19 07:23 Eosinophils % (Manual) 0 % (0.0-4.3) 08/11/19 07: Basophils % (Manual) 0 % (0.0-1.8) 08/11/19 07: Metamyelocytes % 1.0 % 08/11/19 07: Myelocytes % 0 % 08/11/19 07: Promyelocytes % 0 % 08/11/19 07: Blast Cells % 0 % 08/11/19 07: Nucleated RBC % 1.0 % (0.0-0.9) H 08/11/19 07:23 Seg Neutrophils # Man 0.7 K/mm3 (1.8-7.7) L 08/11/19 07:23 Band Neutrophils # 0.0 K/mm3 08/11/19 07:23 Lymphocytes # (Manual) 0.9 K/mm3 (1.2-5.4) L 08/11/19 07:23 Abs React Lymphs (Man) 0.1 K/mm3 08/11/19 07:23 Monocytes # (Manual) 0.8 K/mm3 (0.0-0.8) 08/11/19 07:23 Eosinophils # (Manual) 0.0 K/mm3 (0.0-0.4) 08/11/19 07:23 Basophils # (Manual) 0.0 K/mm3 (0.0-0.1) 08/11/19 07:23 Metamyelocytes # 0.0 K/mm3 08/11/19 07:23 Myelocytes # 0.0 K/mm3 08/11/19 07:23 Promyelocytes # 0.0 K/mm3 08/11/19 07:23 Blast Cells # 0.0 K/mm3 08/11/19 07:23 WBC Morphology Not Reportable 08/11/19 07:23 WBC Morphology TNR 08/11/19 07:23 Hypersegmented Neuts Not Reportable 08/11/19 07:23 Hyposegmented Neuts Not Reportable 08/11/19 07:23 Hypogranular Neuts Not Reportable 08/11/19 07:23 Smudge Cells Not Reportable 08/11/19 07:23 Toxic Granulation Not Reportable 08/11/19 07:23 Toxic Vacuolation Not Reportable 08/11/19 07:23 Dohle Bodies Not Reportable 08/11/19 07:23 Pelger-Huet Anomaly Not Reportable 08/11/19 07:23 Maxwell Rods Not Reportable 08/11/19 07:23 Platelet Estimate Consistent w auto 08/11/19 07:23 Clumped Platelets Not Reportable 08/11/19 07:23 Plt Clumps, EDTA Not Reportable 08/11/19 07:23 Large Platelets Not Reportable 08/11/19 07:23 Giant Platelets Not Reportable 08/11/19 07:23 Platelet Satelliting Not Reportable 08/11/19 07:23 Plt Morphology Comment Not Reportable 08/11/19 07:23 RBC Morphology Normal 08/11/19 07:23 Dimorphic RBCs Not Reportable 08/11/19 07:23 Polychromasia Not Reportable 08/11/19 07:23 Hypochromasia Not Reportable 08/11/19 07:23 Poikilocytosis Not Reportable 08/11/19 07:23 Anisocytosis Not Reportable 08/11/19 07:23 Microcytosis Not Reportable 08/11/19 07:23 Macrocytosis Not Reportable 08/11/19 07:23 Spherocytes Not Reportable 08/11/19 07:23 Pappenheimer Bodies Not Reportable 08/11/19 07:23 Sickle Cells Not Reportable 08/11/19 07:23 Target Cells Not Reportable 08/11/19 07:23 Tear Drop Cells Not Reportable 08/11/19 07:23 Ovalocytes Not Reportable 08/11/19 07:23 Helmet Cells Not Reportable 08/11/19 07:23 [place] Bodies Not Reportable 08/11/19 07:23 [place] Rings Not Reportable 08/11/19 07:23 Julian Cells Not Reportable 08/11/19 07:23 Bite Cells Not Reportable 08/11/19 07:23 Crenated Cell Not Reportable 08/11/19 07:23 Elliptocytes Not Reportable 08/11/19 07:23 Acanthocytes (Spur) Not Reportable 08/11/19 07:23 Rouleaux Not Reportable 08/11/19 07:23 Hemoglobin C Crystals Not Reportable 08/11/19 07:23 Schistocytes Not Reportable 08/11/19 07:23 Malaria parasites Not Reportable 08/11/19 07:23 Davian Bodies Not Reportable 08/11/19 07:23 Hem Pathologist Commnt No 08/11/19 07:23 Sodium 141 mmol/L (137-145) 08/11/19 07:23 Potassium 4.5 mmol/L (3.6-5.0) 08/11/19 07:23 Chloride 106.4 mmol/L (98-107) 08/11/19 07:23 Carbon Dioxide 23 mmol/L (22-30) 08/11/19 07:23 Anion Gap 16 mmol/L 08/11/19 07:23 BUN 20 mg/dL (9-20) 08/11/19 07:23 Creatinine 0.9 mg/dL (0.8-1.5) 08/11/19 07:23 Estimated GFR > 60 ml/min 08/11/19 07:23 BUN/Creatinine Ratio 22 % 08/11/19 07:23 Glucose 83 mg/dL (75-100) 08/11/19 07:23 POC Glucose 192 (70-105) H 08/11/19 18:38 Hemoglobin A1c 5.5 % (4-6) 08/11/19 07:23 Calcium 8.5 mg/dL (8.4-10.2) 08/11/19 07:23 Total Bilirubin 0.60 mg/dL (0.1-1.2) 08/11/19 07:23 AST 15 units/L (5-40) 08/11/19 07:23 ALT 9 units/L (7-56) 08/11/19 07:23 Alkaline Phosphatase 81 units/L (35-129) 08/11/19 07:23 Total Protein 7.9 g/dL (6.3-8.2) 08/11/19 07:23 Albumin 3.3 g/dL (3.9-5) L 08/11/19 07:23 Albumin/Globulin Ratio 0.7 % 08/11/19 07:23 Triglycerides 117 mg/dL (2-149) 08/11/19 07:23 Cholesterol 106 mg/dL (50-199) 08/11/19 07:23 LDL Cholesterol Direct 60 mg/dL (50-130) 08/11/19 07:23 HDL Cholesterol 22 mg/dL (40-59) L 08/11/19 07:23 Cholesterol/HDL Ratio 4.81 % 08/11/19 07:23 TSH 2.140 mlU/mL (0.270-4.200) 08/11/19 07:23 Core Measure Documentation - Palliative Care Palliative Care/ Comfort Measures: Not Applicable - Core Measures Any of the following diagnoses?: none Exam - Constitutional Vitals: Temp Pulse Resp BP Pulse Ox 98.5 F 117 H 20 69/42 86 08/14/19 23:45 08/14/19 23:45 08/14/19 23:45 08/14/19 23:45 08/14/19 23:45 Plan Activity: advance as tolerated Weight Bearing Status: Weight Bear as Tolerated Follow up with: ENRIQUE LAMAS MD [Primary Care Provider] - 7 Days
== END 2019-08-14 23:50 | disposition short-term general hospital (02) | DRG 885 ==
LOC: 3A 18:29 → UNDOADMIN 18:29 → 5A 23:10
PROVIDERS: ADMIT Psychiatry & Neurology Psychiatry; ATTEND Psychiatry & Neurology Psychiatry
DX: F20.9 Schizophrenia, unspecified (principal); J44.9 Chronic obstructive pulmonary disease, unspecified; I10 Essential (primary) hypertension; I48.91 Unspecified atrial fibrillation; F43.10 Post-traumatic stress disorder, unspecified; I95.9 Hypotension, unspecified
CPT/HCPCS: 36415; 71045; 80048; 80053; 80061; 80320; 82962; 83036; 84443; 85007; 85025; 93005; 96361; 96374; 96375; G0378; G0480; J7040

== ENCOUNTER 2019-08-14 22:25 | Inpatient (IN) | payer MEDICARE ==
[2019-08-15] MEDS ORDERED: ACETAMINOPHEN 325 MG TAB PO PRN (00:25)
[2019-08-15] MEDS ORDERED: MAGNESIUM HYDROXIDE (MOM) ORAL LIQD UDC PO PRN (00:25)
[2019-08-15] MEDS ORDERED: ONDANSETRON 4 MG/2 ML INJ IV PRN (00:25)
--- NOTE | 2019-08-15 01:13 | History and Physical Report ---
History of Present Illness Date of examination: 08/15/19 Date of admission: 08/15/19 00:07 Chief complaint: Low blood pressure History of present illness: 69-year-old male with known history of schizophrenia who has been on admission in the [facility] since 08/10/2019 for psychological evaluation. He has been found walking into oncoming traffic according to his record. He is being admitted from the [facility] to the medical unit because of low blood p ressure. Call received from the psychiatrist requesting transfer to medical care in view of the hypotension. Blood pressure was said to be 60s systolic and 40s diastolic. Patient has been refusing oral intake. IV fluid not done in the [facility]. Patient appears slightly agitated and states he wants to . He also appears intermittently confused. He also initially declined getting an IV line placed by the medical staff. However I agreed to getting IV fluid upon further counseling. Patient cannot give me any good history. Past History Past Medical History: atrial fib, other (Sleep apnea, PTSD, schizophrenia, cardiomyopathy.) Past Surgical History: No surgical history Social history: other (Resides at an assisted living facility) Family history: no significant family history Medications and Allergies Allergies Allergy/AdvReac Type Severity Reaction Status Date / Time No Known Allergies Allergy Unverified 08/10/19 18:16 Home Medications Medication Instructions Recorded Confirmed Last Taken Type Apixaban [Eliquis] 5 mg PO BID 08/11/19 08/11/19 Unknown History Budesonide-Formoterol 160-4.5 2 puff PO BID 08/11/19 08/14/19 Unknown History Divalproex ER [DepaKOTE ER] 500 mg PO BID 08/11/19 08/11/19 Unknown History Eliquis 5 mg PO BID 08/11/19 08/11/19 Unknown History Furosemide [Lasix TAB] 40 mg PO BID 08/11/19 08/11/19 Unknown History Metoprolol SUCCINATE ER TAB 200 mg PO DAILY 08/11/19 08/11/19 Unknown History Vitamin B12 1,000 mcg PO DAILY 08/11/19 08/11/19 Unknown History busPIRone [Buspar] 5 mg PO BID 08/11/19 08/11/19 Unknown History lisinopriL [Zestril] 20 mg PO QDAY 08/11/19 08/11/19 Unknown History polyethylene glycoL 3350 [Miralax 17 gram PO DAILY 08/11/19 08/11/19 Unknown History 3350] risperiDONE [RisperDAL] 1 mg PO DAILY 08/11/19 08/11/19 Unknown History risperiDONE [RisperDAL] 2 mg PO HS 08/11/19 08/11/19 Unknown History Active Meds: Active Medications Acetaminophen (Tylenol) 650 mg PO Q6H PRN PRN Reason: Pain MILD(1-3)/Fever >100.5/[place] Heparin Sodium (Porcine) (Heparin) 5,000 unit SUB-Q Q8HR LIT Sodium Chloride (Nacl 0.9% 1000 Ml) 1,000 mls @ 125 mls/hr IV DIRECT LIT Magnesium Hydroxide (Milk Of Magnesia) 30 ml PO Q4H PRN PRN Reason: Constipation Ondansetron HCl (Zofran) 4 mg IV Q8H PRN PRN Reason: Nausea And Vomiting Sodium Chloride (Sodium Chloride Flush Syringe 10 Ml) 10 ml IV BID LIT Sodium Chloride (Sodium Chloride Flush Syringe 10 Ml) 10 ml IV PRN PRN PRN Reason: LINE FLUSH Review of Systems ROS unobtainable: due to mental status Exam - Constitutional Vitals: Temp Pulse Resp BP Pulse Ox 97.7 F 08/15/19 00:00 General appearance: Present: no acute distress, well-nourished, other (Dry oral mucosa) - EENT Eyes: Present: PERRL, EOM intact ENT: hearing intact, clear oral mucosa, dentition normal - Neck Neck: Present: supple, normal ROM - Respiratory Respiratory effort: normal Respiratory: bilateral: CTA - Cardiovascular Rhythm: irregularly irregular (Slightly tachycardic) Heart Sounds: Present: S1 & S2 - Extremities Extremities: no ischemia, pulses intact, pulses symmetrical, No edema, Full ROM Peripheral Pulses: within normal limits - Abdominal General gastrointestinal: Present: soft, non-tender, non-distended, normal bowel sounds - Integumentary Integumentary: Present: clear, warm, dry - Psychiatric Psychiatric: agitated (Intermittently agitated) - Neurologic Neurologic: CNII-XII intact, moves all extremities Assessment and Plan - Patient Problems (1) Hypotension Current Visit: Yes Status: Acute Plan to address problem: Possibly secondary to dehydration. Patient be placed on IV fluid. Will monitor vital signs closely. (2) Atrial fibrillation Current Visit: No Status: Acute Plan to address problem: Rate currently controlled. Patient on anticoagulation. (3) Schizophrenia Current Visit: No Status: Acute Plan to address problem: We will continue patient's routine home medications. Will appreciate follow-up by psychiatrist (4) DVT prophylaxis Current Visit: Yes Status: Acute Plan to address problem: Patient currently on anticoagulation. (5) Full code status Current Visit: Yes Status: Acute
[2019-08-15] MEDS: SODIUM CHLORIDE 0.9% 1000 ML 1,000 ML IV SCH ×2 (01:15→14:32)
[2019-08-15] MEDS ORDERED: SODIUM CHLORIDE 0.9% 500 ML 500 ML IV ONE (01:45)
[2019-08-15 02:53] LABS: Hematocrit 35.1 % (35.5-45.6); Hemoglobin 11.5 gm/dl (11.8-15.2); Mean Corpuscular HGB Conc 33 % (32-34); Mean Corpuscular Volume 100 fl (84-94); Red Cell Distribution Width 16.8 % (13.2-15.2)
[2019-08-15 02:56] LABS: Platelet Count 94 K/mm3 (140-440)
[2019-08-15 03:06] LABS: Calcium 8.7 mg/dL (8.4-10.2)
[2019-08-15] MEDS: HEPARIN 5,000 UNIT/1 ML VIAL SUB-Q SCH ×3 (06:38→22:33)
[2019-08-15 06:56] LABS: Basophils % (Manual) 0 % (0.0-1.8); Eosinophils % (Manual) 0 % (0.0-4.3); Total Cells Counted 100
[2019-08-15 06:57] LABS: Platelet Estimate Consistent w Auto; Spherocytes Rare
--- NOTE | 2019-08-15 09:37 | Consultation ---
History of Present Illness - Reason for Consult Consult date: 08/15/19 Reason for consult: depression - History of Present Psychiatric Illness The patient's medical record was reviewed and the patient's progress was discussed with the nursing staff. History of Present Illness: Maximus Young is a 69y/o male patient who is known to me from the [facility]. He was initially admitted to the [facility] because he was found walking into oncoming traffic according to chart. The patient was transferred to ICU for hypotension. I attempted to interview the patient this morning. He is somnolent and could not be aroused for the interview. PAST PSYCHIATRIC HISTORY: Could not obtain PAST MEDICAL HISTORY: Could not obtain Family Psychiatric History: None reported or documented SOCIAL HISTORY Could not obtain REVIEW OF SYSTEMS Could not obtain MENTAL STATUS EXAMINATION Unable to complete Assessment Schizoaffective Disorder Plan Medication Depacon 500mg IV q 12 hours Sitter: Defer to primary Medical: Per primary Plan: TBD Will continue to follow. Thank you for this consult. Medications and Allergies Allergies Allergy/AdvReac Type Severity Reaction Status Date / Time No Known Allergies Allergy Unverified 08/10/19 18:16 Home Medications Medication Instructions Recorded Confirmed Last Taken Type Apixaban [Eliquis] 5 mg PO BID 08/11/19 08/15/19 Unknown History Budesonide-Formoterol 160-4.5 2 puff PO BID 08/11/19 08/15/19 Unknown History Divalproex ER [DepaKOTE ER] 500 mg PO BID 08/11/19 08/15/19 08/14/19 21:47 History Eliquis 5 mg PO BID 08/11/19 08/15/19 Unknown History Furosemide [Lasix TAB] 40 mg PO BID 08/11/19 08/15/19 08/14/19 21:48 History Metoprolol SUCCINATE ER TAB 200 mg PO DAILY 08/11/19 08/15/19 Unknown History Vitamin B12 1,000 mcg PO DAILY 08/11/19 08/15/19 Unknown History busPIRone [Buspar] 5 mg PO BID 08/11/19 08/15/19 08/14/19 21:46 History lisinopriL [Zestril] 20 mg PO QDAY 08/11/19 08/15/19 08/14/19 10:50 History polyethylene glycoL 3350 [Miralax 17 gram PO DAILY 08/11/19 08/15/19 Unknown History 3350] risperiDONE [RisperDAL] 1 mg PO DAILY 08/11/19 08/15/19 Unknown History risperiDONE [RisperDAL] 2 mg PO HS 08/11/19 08/15/19 Unknown History Active Meds: Active Medications Acetaminophen (Tylenol) 650 mg PO Q6H PRN PRN Reason: Pain MILD(1-3)/Fever >100.5/[place] Heparin Sodium (Porcine) (Heparin) 5,000 unit SUB-Q Q8HR [facility] Last Admin: 08/15/19 06:38 Dose: 5,000 unit Documented by: Sodium Chloride (Nacl 0.9% 1000 Ml) 1,000 mls @ 125 mls/hr IV DIRECT [facility] Last Admin: 08/15/19 01:15 Dose: 125 mls/hr Documented by: Magnesium Hydroxide (Milk Of Magnesia) 30 ml PO Q4H PRN PRN Reason: Constipation Ondansetron HCl (Zofran) 4 mg IV Q8H PRN PRN Reason: Nausea And Vomiting Sodium Chloride (Sodium Chloride Flush Syringe 10 Ml) 10 ml IV BID LIT Sodium Chloride (Sodium Chloride Flush Syringe 10 Ml) 10 ml IV PRN PRN PRN Reason: LINE FLUSH Mental Status Exam - Vital signs Last Vital Signs Temp 97.8 F 08/15/19 08:00 Pulse 104 H 08/15/19 06:31 Resp 14 08/15/19 06:31 BP 100/61 08/15/19 06:31 Pulse Ox 95 08/15/19 06:31 Results Result Diagrams: 08/15/19 02:36 08/15/19 02:36 Abnormal lab results 08/15/19 08/15/19 Range/Units 02:36 02:36 RBC 3.50 L (3.65-5.03) M/mm3 Hgb 11.5 L (11.8-15.2) gm/dl Hct 35.1 L (35.5-45.6) % MCV 100 H (84-94) fl MCH 33 H (28-32) pg RDW 16.8 H (13.2-15.2) % Plt Count 94 L (140-440) K/mm3 Seg Neuts % (Manual) 24.0 L (40.0-70.0) % Lymphocytes % (Manual) 64.0 H (13.4-35.0) % Monocytes % (Manual) 12.0 H (0.0-7.3) % Seg Neutrophils # Man 1.2 L (1.8-7.7) K/mm3 Chloride 95.7 L (98-107) mmol/L BUN 35 H (9-20) mg/dL Creatinine 2.0 H D (0.8-1.5) mg/dL All other labs normal.
[2019-08-15] MEDS: VALPROATE SODIUM 500 MG in SODIUM CHLORIDE 0.9% 100 ML IV SCH ×2 (10:43→23:43)
--- NOTE | 2019-08-15 12:14 | Event Note ---
Date: 08/15/19 Check BMP Considering starting on Fluids. urology consulted due to Urinary obstruction.
--- NOTE | 2019-08-15 14:27 | Consultation ---
History of Present Illness Consult date: 08/15/19 Requesting physician: NAREN ROTHMAN Reason for consult: other (Hypotension) History of present illness: PULMONARY/CCM CONSULT NOTE (Full dictation # [id number]) Please see dictated notes for full details Past History Past Medical History: atrial fib, other (Sleep apnea, PTSD, schizophrenia, cardiomyopathy.) Past Surgical History: No surgical history Social history: other (Resides at an assisted living facility) Family history: no significant family history Medications and Allergies Allergies Allergy/AdvReac Type Severity Reaction Status Date / Time No Known Allergies Allergy Unverified 08/10/19 18:16 Home Medications Medication Instructions Recorded Confirmed Last Taken Type Apixaban [Eliquis] 5 mg PO BID 08/11/19 08/15/19 Unknown History Budesonide-Formoterol 160-4.5 2 puff PO BID 08/11/19 08/15/19 Unknown History Divalproex ER [DepaKOTE ER] 500 mg PO BID 08/11/19 08/15/19 08/14/19 21:47 History Eliquis 5 mg PO BID 08/11/19 08/15/19 Unknown History Furosemide [Lasix TAB] 40 mg PO BID 08/11/19 08/15/19 08/14/19 21:48 History Metoprolol SUCCINATE ER TAB 200 mg PO DAILY 08/11/19 08/15/19 Unknown History Vitamin B12 1,000 mcg PO DAILY 08/11/19 08/15/19 Unknown History busPIRone [Buspar] 5 mg PO BID 08/11/19 08/15/19 08/14/19 21:46 History lisinopriL [Zestril] 20 mg PO QDAY 08/11/19 08/15/19 08/14/19 10:50 History polyethylene glycoL 3350 [Miralax 17 gram PO DAILY 08/11/19 08/15/19 Unknown History 3350] risperiDONE [RisperDAL] 1 mg PO DAILY 08/11/19 08/15/19 Unknown History risperiDONE [RisperDAL] 2 mg PO HS 08/11/19 08/15/19 Unknown History Active Meds: Active Medications Acetaminophen (Tylenol) 650 mg PO Q6H PRN PRN Reason: Pain MILD(1-3)/Fever >100.5/[place] Heparin Sodium (Porcine) (Heparin) 5,000 unit SUB-Q Q8HR [facility] Last Admin: 08/15/19 14:15 Dose: 5,000 unit Documented by: Sodium Chloride (Nacl 0.9% 1000 Ml) 1,000 mls @ 125 mls/hr IV DIRECT [facility] Last Admin: 08/15/19 01:15 Dose: 125 mls/hr Documented by: Valproate Sodium 500 mg/ (Sodium Chloride) 105 mls @ 100 mls/hr IV Q12HR [facility] Last Admin: 08/15/19 10:43 Dose: 100 mls/hr Documented by: Magnesium Hydroxide (Milk Of Magnesia) 30 ml PO Q4H PRN PRN Reason: Constipation Ondansetron HCl (Zofran) 4 mg IV Q8H PRN PRN Reason: Nausea And Vomiting Sodium Chloride (Sodium Chloride Flush Syringe 10 Ml) 10 ml IV BID LIT Sodium Chloride (Sodium Chloride Flush Syringe 10 Ml) 10 ml IV PRN PRN PRN Reason: LINE FLUSH Physical Examination Vital signs: Vital Signs Temp 97.7 F 08/15/19 00:00 Results - Laboratory Findings CBC and BMP: 08/15/19 02:36 08/15/19 14:37 Abnormal lab findings: Abnormal Labs 08/15/19 08/15/19 02:36 02:36 RBC 3.50 L Hgb 11.5 L Hct 35.1 L MCV 100 H MCH 33 H RDW 16.8 H Plt Count 94 L Seg Neuts % (Manual) 24.0 L Lymphocytes % (Manual) 64.0 H Monocytes % (Manual) 12.0 H Seg Neutrophils # Man 1.2 L Chloride 95.7 L BUN 35 H Creatinine 2.0 H D
[2019-08-15 15:22] LABS: Calcium 8.1 mg/dL (8.4-10.2)
--- NOTE | 2019-08-15 17:23 | XRay Report ---
CHEST 1 VIEW INDICATION: MAIN: Acute Hypoxemic Resp Failure COPD; . COMPARISON: 08/10/2019 FINDINGS: Support devices: None. Heart: Normal. Lungs/Pleura: No acute pulmonary or pleural findings. IMPRESSION: 1. No acute findings. Signer Name: Vicente Mills MD Signed: 08/15/2019 5:18 PM Workstation Name: [id number]
--- NOTE | 2019-08-15 17:37 | Consultation ---
History of Present Illness - Reason for Consult Consult date: 08/15/19 - History of Present Illness retention (pvr 600cc) 69-year-old male with known history of schizophrenia who has been on admission in the [facility] since 08/10/2019 for psychological evaluation. He has been found walking into oncoming traffic according to his record. He is being admitted from the [facility] to the medical unit because of low blood pressure. Call received from the psychiatrist requesting transfer to medical care in view of the hypotension. Blood pressure was said to be 60s systolic and 40s diastolic. Patient has been refusing oral intake. IV fluid not done in the [facility] unit. Patient appears slightly agitated and states he wants to . He also appears intermittently confused. He also initially declined getting an IV line placed by the medical staff. Patient cannot give me any good history. called---nurse unable to place lozoya large abd scar (?appy)--- pt not sure wire lozoya 16f barrow tip with kieran colored urine a/p BPH retention start flomax 1qd home with lozoya f/u in office Past History Past Medical History: atrial fib, other (Sleep apnea, PTSD, schizophrenia, cardiomyopathy.) Past Surgical History: No surgical history Social history: other (Resides at an assisted living facility) Family history: no significant family history Medications and Allergies Allergies Allergy/AdvReac Type Severity Reaction Status Date / Time No Known Allergies Allergy Unverified 08/10/19 18:16 Home Medications Medication Instructions Recorded Confirmed Last Taken Type Apixaban [Eliquis] 5 mg PO BID 08/11/19 08/15/19 Unknown History Budesonide-Formoterol 160-4.5 2 puff PO BID 08/11/19 08/15/19 Unknown History Divalproex ER [DepaKOTE ER] 500 mg PO BID 08/11/19 08/15/19 08/14/19 21:47 History Eliquis 5 mg PO BID 08/11/19 08/15/19 Unknown History Furosemide [Lasix TAB] 40 mg PO BID 08/11/19 08/15/19 08/14/19 21:48 History Metoprolol SUCCINATE ER TAB 200 mg PO DAILY 08/11/19 08/15/19 Unknown History Vitamin B12 1,000 mcg PO DAILY 05/23/20 05/27/20 Unknown History busPIRone [Buspar] 5 mg PO BID 08/11/19 08/15/19 08/14/19 21:46 History lisinopriL [Zestril] 20 mg PO QDAY 08/11/19 08/15/19 08/14/19 10:50 History polyethylene glycoL 3350 [Miralax 17 gram PO DAILY 08/11/19 08/15/19 Unknown History 3350] risperiDONE [RisperDAL] 1 mg PO DAILY 08/11/19 08/15/19 Unknown History risperiDONE [RisperDAL] 2 mg PO HS 08/11/19 08/15/19 Unknown History Active Meds: Active Medications Acetaminophen (Tylenol) 650 mg PO Q6H PRN PRN Reason: Pain MILD(1-3)/Fever >100.5/[place] Famotidine (Pepcid) 20 mg PO QDAY [facility] Heparin Sodium (Porcine) (Heparin) 5,000 unit SUB-Q Q8HR [facility] Last Admin: 08/15/19 14:15 Dose: 5,000 unit Documented by: Sodium Chloride (Nacl 0.9% 1000 Ml) 1,000 mls @ 125 mls/hr IV DIRECT [facility] Last Admin: 08/15/19 14:32 Dose: 125 mls/hr Documented by: Valproate Sodium 500 mg/ (Sodium Chloride) 105 mls @ 100 mls/hr IV Q12HR [facility] Last Admin: 08/15/19 10:43 Dose: 100 mls/hr Documented by: Magnesium Hydroxide (Milk Of Magnesia) 30 ml PO Q4H PRN PRN Reason: Constipation Ondansetron HCl (Zofran) 4 mg IV Q8H PRN PRN Reason: Nausea And Vomiting Sodium Chloride (Sodium Chloride Flush Syringe 10 Ml) 10 ml IV BID [facility] Last Admin: 08/15/19 15:02 Dose: Not Given Documented by: Sodium Chloride (Sodium Chloride Flush Syringe 10 Ml) 10 ml IV PRN PRN PRN Reason: LINE FLUSH Exam - Constitutional Vitals: Temp Pulse Resp BP Pulse Ox 97.8 F 95 H 16 112/58 94 08/15/19 16:00 08/15/19 16:00 08/15/19 16:00 08/15/19 16:00 08/15/19 16:00 Results - Labs CBC & Chem 7: 08/15/19 02:36 08/15/19 14:37 Labs: Abnormal lab results 08/15/19 08/15/19 08/15/19 Range/Units 02:36 02:36 14:37 RBC 3.50 L (3.65-5.03) M/mm3 Hgb 11.5 L (11.8-15.2) gm/dl Hct 35.1 L (35.5-45.6) % MCV 100 H (84-94) fl MCH 33 H (28-32) pg RDW 16.8 H (13.2-15.2) % Plt Count 94 L (140-440) K/mm3 Seg Neuts % (Manual) 24.0 L (40.0-70.0) % Lymphocytes % (Manual) 64.0 H (13.4-35.0) % Monocytes % (Manual) 12.0 H (0.0-7.3) % Seg Neutrophils # Man 1.2 L (1.8-7.7) K/mm3 Chloride 95.7 L (98-107) mmol/L BUN 35 H 37 H (9-20) mg/dL Creatinine 2.0 H D 1.6 H (0.8-1.5) mg/dL Calcium 8.1 L (8.4-10.2) mg/dL
[2019-08-15] MEDS: TAMSULOSIN 0.4 MG CAP PO SCH (19:29)
--- NOTE | 2019-08-15 20:14 | Consultation ---
PULMONARY CRITICAL CARE CONSULT CONSULTING PHYSICIAN: Dr. Rosales Gutierrez. REASON FOR CONSULTATION: Hypotension. CHIEF COMPLAINT AND HISTORY OF PRESENT ILLNESS: The patient is a 69-year-old male with past medical history significant for schizophrenia, who had been on admission in the geropsychiatric unit since the of this month for evaluation. He was found walking into oncoming traffic according to the initial arrest response. He developed hypotension while in the geropsychiatric unit. Blood pressure was said to be in the 60s systolic. The patient had been refusing oral intake. He was agitated. He was complaining and wanted to . He appeared to be intermittently confused. He was transferred into the ICU and I stopped by to see him. When I stopped by to see him, he was resting in bed. He was lethargic, presumably had been sedated. Blood pressure was a little bit better as he had allowed them to stop IV hydration. I do not have any history of fevers or chills. He is declining to give me further history. He does deny cough. He denies chest pain at the time when I saw him. The patient's tobacco use/abuse history is unclear. The above is as much of the history of presentation as I have. PAST MEDICAL HISTORY: Again, significant for atrial fibrillation, obstructive sleep apnea, posttraumatic stress disorder, cardiomyopathy, schizophrenia. PAST SURGICAL HISTORY: Unknown. MEDICATIONS: He was on at the time I stopped by to see him were reviewed. Pertinent medications included the following: Tylenol 650 mg p.o. q. 6 hours p.r.n. mild pain or fevers, heparin 5000 units subcutaneous q. 8 hours, Zofran 4 mg IV q. 8 hours p.r.n. nausea and vomiting and Depakote 500 mg IV q. 12 hours. ALLERGIES: No known drug allergies. DIET: Well-built gentleman, acute weight loss or gain history is unknown. FAMILY AND SOCIAL HISTORY: Apparently lives at an assisted living facility. Alcohol, tobacco, illicit drug use or abuse history is unknown. Family history is otherwise unknown. REVIEW OF SYSTEMS: Unobtainable secondary to the patient's mental condition. Since he has been here, no gross hematochezia or melena, no gross hematuria, no hematemesis, no hemoptysis. He denies chest pains. No witnessed seizures. Review of systems is otherwise unobtainable. PHYSICAL EXAMINATION: VITAL SIGNS: At presentation in the Emergency Room, review of the vital signs, he was afebrile, temperature 97.7 degrees Fahrenheit, pulse 105, respiratory rate of 25, blood pressure 81/49, O2 sats were 94%. Inspired oxygen concentration at that time was not recorded. When I stopped by to see him, his O2 sats were 94% and that was on I believe 2 liters nasal cannula. GENERAL: He is an elderly looking male, normocephalic, atraumatic, talking to me with mildly increased respiratory effort at rest. HEAD, EYES, EARS, NOSE AND THROAT: He was anicteric. No conjunctival erythema. Oropharynx was dry. No gross jugular venous distention. No thyromegaly. NECK: Grossly, there were no palpable lymph nodes in the supraclavicular or submandibular lymph node chains. LUNGS: Auscultation of both lung magana revealed diminished bilateral breath sounds, slightly prolonged expiratory phase. No active wheezing. He had a little bit of barrel chest. ABDOMEN: Soft, flat. Bowel sounds are positive. Nontender. No palpable hepatosplenomegaly. EXTREMITIES: Without overt digital clubbing or cyanosis and no pedal edema. Pedal pulses are 2+ bilaterally. NEUROLOGIC: Pupils are equal, round, about 3 mm, reactive to light. Extraocular muscle movements could not be assessed due to the patient's refusal. He did have spontaneous movements to all his extremities. PSYCHIATRIC: His mood and affect were flat. He was intermittently looked agitated. SKIN: Normal turgor in the areas I have examined without overt cellulitis or rash. Please see wound care nurses and registered nurses' notes for full description of the skin. LABORATORY DATA: From my review were as follows: Admission white cell count 4800, hemoglobin 11.5, hematocrit 35.1, platelet count 94. No band forms reported on the manual differential. Serum sodium 139, potassium 3.6, chloride 96, bicarbonate 26, BUN 35, creatinine 2.0, glucose is 40. No microbiology studies. No radiographic studies for my report. ASSESSMENT: 1. Hypotension that may be secondary to 2. 2. Intravascular volume depletion. 3. Acute kidney injury, likely prerenal. 4. Schizophrenia. 5. Anemia that is macrocytic. 6. History of atrial fibrillation. 7. Sleep apnea. 8. Posttraumatic stress disorder. 9. Cardiomyopathy. PLAN: I will go ahead and order some urine electrolytes just to calculate fractional excretion of sodium. Nephrology evaluation will be at the behest of the attending physician. I will schedule him on IV normal saline at 75 mL per hour for another couple of liters and see if serum creatinine and azotemia do not improve. Rate control will be with p.r.n. metoprolol in the short term. I believe with volume resuscitation, the rate should go down even further. Blood pressure so far is at this point holding firm. The mean arterial pressures for the past few checks have been in the 70s. Oxygen will be weaned to keep sats greater than or equal to about 90%. Aspiration precautions will be maintained. I will go ahead and order a chest x-ray as he does have some clinical evidence of COPD. Bronchodilators will be ordered on a p.r.n. basis acutely. His other psych medications will be per the psychiatric team. He is appropriately on DVT prophylaxis. I will also be putting him on GI prophylaxis. Flu and pneumonia vaccination will be per protocol. He is stable at this time and will be downgraded to the telemetry floor or the intermediate care unit. I will also go ahead and order for the electrolyte testing to include a magnesium level and a phosphorus level in light of the macrocytic anemia. It is unclear if he also has a history of alcohol use/abuse. Thank you very much for the consult. We will follow along and make further recommendations as picture progresses/becomes clearer. JOB# [id number] AUSTYN/TATIANNA GARCIA
[2019-08-16] MEDS: SODIUM CHLORIDE 0.9% 1000 ML 1,000 ML IV SCH ×3 (02:37→21:59)
[2019-08-16] MEDS: HEPARIN 5,000 UNIT/1 ML VIAL SUB-Q SCH ×3 (06:04→22:00)
[2019-08-16 06:39] LABS: Hematocrit 34.4 % (35.5-45.6); Hemoglobin 11.2 gm/dl (11.8-15.2); Mean Corpuscular HGB Conc 33 % (32-34); Mean Corpuscular Volume 101 fl (84-94); Red Blood Count 3.42 M/mm3 (3.65-5.03)
[2019-08-16 06:41] LABS: INR 1.52 (0.87-1.13)
[2019-08-16 06:46] LABS: Platelet Count 81 K/mm3 (140-440)
[2019-08-16 07:00] LABS: BUN/Creatinine Ratio 25; Blood Urea Nitrogen 27 mg/dL (9-20); Calcium 8.1 mg/dL (8.4-10.2); Hemolysis Index 3
--- NOTE | 2019-08-16 07:12 | Progress Note ---
Assessment and Plan -Hypotension that may be secondary to Intravascular volume depletion. - Acute kidney injury, likely prerenal. -Schizophrenia. - Anemia that is macrocytic. -History of atrial fibrillation. - Sleep apnea. - Post-traumatic stress disorder. -Cardiomyopathy -Continue with gentle IVF while monitoring hemodynamics and respiratory status -Anticoagulated for Afib, currently rate controlled -Adjust cardiac medications and titrate fro better blood pressure and hemodynamics -Supplemental oxygen as indicated to keep O2 sats >92% -Monitor and trend renal function -Avoid nephrotoxins, adjust all medications for GFR and CrCL -Does not appear to have sepsis as a cause for his hypotension -Monitor CBC, trend temperature curve -All chronic medications as clinically indicated -All other care as per primary and consulting physicians -Will continue to monitor closely Subjective Date of service: 08/16/19 Interval history: Patient is seen today for: Hypotension; VIMAL-prerenal: Cardiomyopathy Seen and examined at bedside; 24hour events reviewed; nursing and respiratory care staff consulted; no adverse overnight events reported to me; resting peacefully in bed, no fevers, no chills. No chest pain, shortness of b reath, no diarrhea or vomiting. Blood pressure is improving with volume resuscitation; Patient noted to have urinary retention and was seen by Urology with lozoya placed Objective - Exam Narrative Exam: General appearance: Present: no acute distress, well-nourished, lethargic - EENT Eyes: Present: PERRL, EOM intact ENT: hearing intact, clear oral mucosa, dentition normal - Neck Neck: Present: supple, normal ROM - Respiratory Respiratory effort: normal Respiratory: bilateral: CTA - Cardiovascular Rhythm: irregularly irregular Heart Sounds: Present: S1 & S2 - Extremities Extremities: no ischemia, pulses intact, pulses symmetrical, No edema, Full ROM Peripheral Pulses: within normal limits - Abdominal General gastrointestinal: Present: abdominal scar, soft, non-tender, non-diste nded, normal bowel sounds - Integumentary Integumentary: Present: clear, warm, dry - Psychiatric Psychiatric: calm - Neurologic Neurologic: CNII-XII intact, moves all extremities Vital Signs - 12hr 08/15/19 08/15/19 08/15/19 19:21 19:31 19:41 Temperature Pulse Rate 96 H 95 H 96 H Respiratory 19 20 20 Rate Blood Pressure 105/59 105/59 105/59 O2 Sat by Pulse 95 96 95 Oximetry 08/15/19 08/15/19 08/15/19 19:51 20:00 20:11 Temperature Pulse Rate 97 H 98 H 98 H Respiratory 18 18 22 Rate Blood Pressure 105/59 103/63 103/63 O2 Sat by Pulse 95 95 95 Oximetry 08/15/19 08/15/19 08/16/19 21:10 22:00 00:00 Temperature 99.4 F 96.3 F L Pulse Rate 97 H 97 H Respiratory 20 Rate Blood Pressure 107/54 O2 Sat by Pulse 95 95 Oximetry 08/16/19 08/16/19 08/16/19 00:35 04:51 06:00 Temperature 97.7 F 97.6 F Pulse Rate 97 H 98 H 98 H Respiratory 20 20 Rate Blood Pressure 128/67 126/72 O2 Sat by Pulse 99 94 Oximetry CBC and BMP: 08/16/19 05:26 08/16/19 05:26 ABG, PT/INR, D-dimer: PT/INR, D-dimer PT 17.9 Sec. (12.2-14.9) H 08/16/19 05:26 INR 1.52 (0.87-1.13) H 08/16/19 05:26 Abnormal lab findings: Abnormal Labs 08/15/19 08/15/19 08/15/19 02:36 02:36 14:37 WBC RBC 3.50 L Hgb 11.5 L Hct 35.1 L MCV 100 H MCH 33 H RDW 16.8 H Plt Count 94 L Seg Neuts % (Manual) 24.0 L Lymphocytes % (Manual) 64.0 H Monocytes % (Manual) 12.0 H Seg Neutrophils # Man 1.2 L PT INR Chloride 95.7 L BUN 35 H 37 H Creatinine 2.0 H D 1.6 H Calcium 8.1 L 08/16/19 08/16/19 08/16/19 05:26 05:26 05:26 WBC 3.1 L RBC 3.42 L Hgb 11.2 L Hct 34.4 L MCV 101 H MCH 33 H RDW 17.0 H Plt Count 81 L Seg Neuts % (Manual) Lymphocytes % (Manual) Monocytes % (Manual) Seg Neutrophils # Man PT 17.9 H INR 1.52 H Chloride BUN 27 H Creatinine Calcium 8.1 L
[2019-08-16 10:25] LABS: Basophils % (Manual) 0 % (0.0-1.8); Total Cells Counted 100
[2019-08-16 10:26] LABS: Anisocytosis 1+; Band Neutrophils # (Manual) 0.2 K/mm3; Eosinophils % (Manual) 0 % (0.0-4.3); Hypochromasia Few; Macrocytosis 1+; Myelocytes # (Manual) 0.1 K/mm3; Platelet Clumps Rare; Platelet Estimate Consistent w Auto
[2019-08-16] MEDS: FAMOTIDINE 20 MG TAB PO SCH (11:04)
[2019-08-16] MEDS: TAMSULOSIN 0.4 MG CAP PO SCH (11:04)
--- NOTE | 2019-08-16 11:15 | Progress Note ---
Subjective - Reason for Consult Consult date: 08/16/19 Reason for consult: depression - Chief Complaint Chief complaint: The patient's medical record was reviewed and the patient's progress was discussed with the nursing staff. During my interview with the patient this morning, he is lying in bed awake. He is a/o x 2. He is calm and cooperative. He is a lot more conversational that what he was previously [facility] the [facility]. The patient states to me he "came to the hospital because I couldn't breathe." He denies SI/HI, or hallucinations of any kind. When asking about the patient's mood, he says, "depressed, I guess in away. But better." He says he "slept well, but still feels tired." The patient says his appetite is "not that good." REVIEW OF SYSTEMS Constitutional: Negative for weight loss ENT: Negative for stridor Respiratory: Negative for cough or hemoptysis All other systems reviewed and are negative MENTAL STATUS EXAMINATION General Appearance: Dressed appropriately Behavior: Calm and cooperative. Fair eye contact Mood: "Depressed" Affect: Congruent with stated mood Speech: Normal rate and tone Thought Process: Goal oriented Thought Content: Suicidal Ideation: Denies Homicidal Ideation: Denies Hallucinations: Denies Delusions: None elicited Insight and Judgment: Limited Memory/Cognition: Limited Assessment Major Depressive Disorder Plan MEDICATIONS: Zoloft 25mg po daily Risks, benefits and alternatives of medications discussed with the patient, questions answered and consent obtained from patient. PSYCHOTHERAPY: Supportive psychotherapy provided MEDICAL: Per primary team DELIRIUM PRECAUTIONS: Please re-orient patient frequently, keep lights on during the day, and minimize benzodiazepines and opiates as these medications could worsen patient's confusion. KIDS ACTIVITIES COACH: Per Medical Team DISPOSITION: The patient does not meet the requirement for acute inpatient psychiatric treatment at this time. He may discharge home once medically clear. The patient's symptoms can be managed on an outpatient basis. The patient understands that if thoughts of self harm or endangering feelings are to arise he is to seek immediate assistance including but not limited to the crisis hotline, 911 and/or ER. The woods overseer to further discuss safety plan and given the patient resources for outpatient psychiatry. Will sign off. Thank you for the consult. Please contact with any questions and/or concerns. Mental Status Exam - Vital signs Last Vital Signs Temp 97.6 F 08/16/19 04:51 Pulse 98 H 08/16/19 06:00 Resp 20 08/16/19 04:51 BP 126/72 08/16/19 04:51 Pulse Ox 94 08/16/19 04:51
[2019-08-16] MEDS: VALPROATE SODIUM 500 MG in SODIUM CHLORIDE 0.9% 100 ML IV SCH ×2 (11:21→21:59)
--- NOTE | 2019-08-16 13:19 | Progress Note ---
Assessment and Plan Assessment and plan: 69-year-old male with known history of schizophrenia who has been on admission in the [facility] psych unit since 08/10/2019 for psychological evaluation. He has been found walking into oncoming traffic according to his record. He is being admitted from the [facility] psych unit to the medical unit because of low blood pressure. Call received from the psychiatrist requesting transfer to medical care in view of the hypotension. Blood pressure was said to be 60s systolic and 40s diastolic. Patient has been refusing oral intake. IV fluid not done in the [facility] psych unit. Patient appears slightly agitated and states he wants to . He also appears intermittently confused. He also initially declined getting an IV line placed by the medical staff. However I agreed to getting IV fluid upon further intake counselor ing. Patient cannot give me any good history. * Patient noted to have urinary retention and was seen by Urology with lozoya placed - Patient Problems (1) Hypotension Current Visit: Yes Status: Acute Plan to address problem: Possibly secondary to dehydration. Patient be placed on IV fluid. Will monitor vital signs closely. (2) Atrial fibrillation Current Visit: No Status: Acute Plan to address problem: Rate currently controlled. Patient on anticoagulation. (3) Schizophrenia Current Visit: No Status: Acute Plan to address problem: We will continue patient's routine home medications. Will appreciate follow-up by psychiatrist (4) BPH Retention noted urology contacted and lozoya placed and recommended to discharge with same wire lozoya 16f [place] with kieran colored urine (5) DVT prophylaxis Current Visit: Yes Status: Acute Plan to address problem: Patient currently on anticoagulation. (5) Full code status Current Visit: Yes Status: Acute History Interval history: Patient seen and examined, no new issues but still lethargic, BP improving Hospitalist Physical - Physical exam Narrative exam: General appearance: Present: no acute distress, well-nourished, lethargic - EENT Eyes: Present: PERRL, EOM intact ENT: hearing intact, clear oral mucosa, dentition normal - Neck Neck: Present: supple, normal ROM - Respiratory Respiratory effort: normal Respiratory: bilateral: CTA - Cardiovascular Rhythm: irregularly irregular Heart Sounds: Present: S1 & S2 - Extremities Extremities: no ischemia, pulses intact, pulses symmetrical, No edema, Full ROM Peripheral Pulses: within normal limits - Abdominal General gastrointestinal: Present: abdominal scar, soft, non-tender, non- distended, normal bowel sounds - Integumentary Integumentary: Present: clear, warm, dry - Psychiatric Psychiatric: calm - Neurologic Neurologic: CNII-XII intact, moves all extremities - Constitutional Vitals: Temp Pulse Resp BP Pulse Ox 98.9 F 92 H 17 111/55 98 08/16/19 07:58 08/16/19 10:11 08/16/19 10:11 08/16/19 10:11 08/16/19 10:11 General appearance: Present: no acute distress, well-nourished, other (Dry oral mucosa) Results - Labs CBC & Chem 7: 08/16/19 05:26 08/16/19 05:26 Labs: Laboratory Last Values WBC 3.1 K/mm3 (4.5-11.0) L 08/16/19 05:26 RBC 3.42 M/mm3 (3.65-5.03) L 08/16/19 05:26 Hgb 11.2 gm/dl (11.8-15.2) L 08/16/19 05:26 Hct 34.4 % (35.5-45.6) L 08/16/19 05:26 MCV 101 fl (84-94) H 08/16/19 05:26 MCH 33 pg (28-32) H 08/16/19 05:26 MCHC 33 % (32-34) 08/16/19 05:26 RDW 17.0 % (13.2-15.2) H 08/16/19 05:26 Plt Count 81 K/mm3 (140-440) L 08/16/19 05:26 [place] % (Auto) Service Worker Helper 08/16/19 05:26 Add Manual Diff Complete 08/16/19 05:26 Total Counted 100 08/16/19 05:26 Seg Neutrophils % Service Worker Helper 08/15/19 02:36 Seg Neuts % (Manual) 38.0 % (40.0-70.0) L 08/16/19 05:26 Band Neutrophils % 5.0 % 08/16/19 05:26 Lymphocytes % (Manual) 25.0 % (13.4-35.0) 08/16/19 05:26 Reactive Lymphs % (Man) 0 % 08/16/19 05:26 Monocytes % (Manual) 26.0 % (0.0-7.3) H 08/16/19 05:26 Eosinophils % (Manual) 0 % (0.0-4.3) 08/16/19 05:26 Basophils % (Manual) 0 % (0.0-1.8) 08/16/19 05:26 Metamyelocytes % 3.0 % 08/16/19 05:26 Myelocytes % 3.0 % 08/16/19 05:26 Promyelocytes % 0 % 08/16/19 05:26 Blast Cells % 0 % 08/16/19 05:26 Nucleated RBC % Not Reportable 08/16/19 05:26 Seg Neutrophils # Man 1.2 K/mm3 (1.8-7.7) L 08/16/19 05:26 Band Neutrophils # 0.2 K/mm3 08/16/19 05:26 Lymphocytes # (Manual) 0.8 K/mm3 (1.2-5.4) L 08/16/19 05:26 Abs React Lymphs (Man) 0.0 K/mm3 08/16/19 05:26 Monocytes # (Manual) 0.8 K/mm3 (0.0-0.8) 08/16/19 05:26 Eosinophils # (Manual) 0.0 K/mm3 (0.0-0.4) 08/16/19 05:26 Basophils # (Manual) 0.0 K/mm3 (0.0-0.1) 08/16/19 05:26 Metamyelocytes # 0.1 K/mm3 08/16/19 05:26 Myelocytes # 0.1 K/mm3 08/16/19 05:26 Promyelocytes # 0.0 K/mm3 08/16/19 05:26 Blast Cells # 0.0 K/mm3 08/16/19 05:26 WBC Morphology Not Reportable 08/16/19 05:26 Hypersegmented Neuts Not Reportable 08/16/19 05:26 Hyposegmented Neuts Not Reportable 08/16/19 05:26 Hypogranular Neuts Not Reportable 08/16/19 05:26 Smudge Cells Not Reportable 08/16/19 05:26 Toxic Granulation Not Reportable 08/16/19 05:26 Toxic Vacuolation Not Reportable 08/16/19 05:26 Dohle Bodies Not Reportable 08/16/19 05:26 Pelger-Huet Anomaly Not Reportable 08/16/19 05:26 Maxwell Rods Not Reportable 08/16/19 05:26 Platelet Estimate Consistent w auto 08/16/19 05:26 Clumped Platelets Rare 08/16/19 05:26 Plt Clumps, EDTA Not Reportable 08/16/19 05:26 Large Platelets Not Reportable 08/16/19 05:26 Giant Platelets Not Reportable 08/16/19 05:26 Platelet Satelliting Not Reportable 08/16/19 05:26 Plt Morphology Comment Not Reportable 08/16/19 05:26 RBC Morphology Not Reportable 08/16/19 05:26 Dimorphic RBCs Not Reportable 08/16/19 05:26 Polychromasia Not Reportable 08/16/19 05:26 Hypochromasia Few 08/16/19 05:26 Poikilocytosis Not Reportable 08/16/19 05:26 Anisocytosis 1+ 08/16/19 05:26 Microcytosis Not Reportable 08/16/19 05:26 Macrocytosis 1+ 08/16/19 05:26 Spherocytes Not Reportable 08/16/19 05:26 Pappenheimer Bodies Not Reportable 08/16/19 05:26 Sickle Cells Not Reportable 08/16/19 05:26 Target Cells Not Reportable 08/16/19 05:26 Tear Drop Cells Not Reportable 08/16/19 05:26 Ovalocytes Not Reportable 08/16/19 05:26 Helmet Cells Not Reportable 08/16/19 05:26 [place] Bodies Not Reportable 08/16/19 05:26 [place] Rings Not Reportable 08/16/19 05:26 Christine Cells Not Reportable 08/16/19 05:26 Bite Cells Not Reportable 08/16/19 05:26 Crenated Cell Not Reportable 08/16/19 05:26 Elliptocytes Not Reportable 08/16/19 05:26 Acanthocytes (Spur) Not Reportable 08/16/19 05:26 Rouleaux Not Reportable 08/16/19 05:26 Hemoglobin C Crystals Not Reportable 08/16/19 05:26 Schistocytes Not Reportable 08/16/19 05:26 Malaria parasites Not Reportable 08/16/19 05:26 Davian Bodies Not Reportable 08/16/19 05:26 Hem Pathologist Commnt No 08/16/19 05:26 PT 17.9 Sec. (12.2-14.9) H 08/16/19 05:26 INR 1.52 (0.87-1.13) H 08/16/19 05:26 Sodium 142 mmol/L (137-145) 08/16/19 05:26 Potassium 3.7 mmol/L (3.6-5.0) 08/16/19 05:26 Chloride 105.1 mmol/L (98-107) 08/16/19 05:26 Carbon Dioxide 26 mmol/L (22-30) 08/16/19 05:26 Anion Gap 15 mmol/L 08/16/19 05:26 BUN 27 mg/dL (9-20) H 08/16/19 05:26 Creatinine 1.1 mg/dL (0.8-1.5) 08/16/19 05:26 Estimated GFR > 60 ml/min 08/16/19 05:26 BUN/Creatinine Ratio 25 % 08/16/19 05:26 Glucose 81 mg/dL (75-100) 08/16/19 05:26 Calcium 8.1 mg/dL (8.4-10.2) L 08/16/19 05:26 Phosphorus 4.00 mg/dL (2.5-4.5) 08/15/19 16:50 Magnesium 1.90 mg/dL (1.7-2.3) 08/15/19 16:50 Lozoya/IV: Voiding Method Indwelling Catheter IV Catheter Type [Right Hand] Peripheral IV Active Medications - Current Medications Current Medications: Generic Name Dose Route Start Last Admin Trade Name Freq PRN Reason Stop Dose Admin Acetaminophen 650 mg 08/15/19 00:25 Tylenol PO Q6H PRN Pain MILD(1-3)/Fever >100.5/DENNIS Famotidine 20 mg 08/16/19 10:00 08/16/19 11:04 Pepcid PO 20 mg QDAY LIT Administration Heparin Sodium (Porcine) 5,000 unit 08/15/19 06:00 08/16/19 06:04 Heparin SUB-Q 5,000 unit Q8HR LIT Administration Sodium Chloride 1,000 mls @ 125 mls/hr 08/15/19 00:30 08/16/19 11:21 Nacl 0.9% 1000 Ml IV 125 mls/hr DIRECT LIT Administration Valproate Sodium 500 mg/ 105 mls @ 100 mls/hr 08/15/19 10:30 08/16/19 11:21 Sodium Chloride IV 100 mls/hr Q12HR LIT Administration Magnesium Hydroxide 30 ml 08/15/19 00:25 Milk Of Magnesia PO Q4H PRN Constipation Ondansetron HCl 4 mg 08/15/19 00:25 Zofran IV Q8H PRN Nausea And Vomiting Sertraline HCl 25 mg 08/16/19 12:00 Zoloft PO QDAY LIT Sodium Chloride 10 ml 08/15/19 10:00 08/16/19 11:07 Sodium Chloride Flush Syringe 10 Ml IV 10 ml BID LIT Administration Sodium Chloride 10 ml 08/15/19 00:25 Sodium Chloride Flush Syringe 10 Ml IV PRN PRN LINE FLUSH Tamsulosin HCl 0.4 mg 08/15/19 19:00 08/16/19 11:04 Flomax PO 0.4 mg QDAY LIT Administration Nutrition/Malnutrition Assess - Dietary Evaluation Nutrition/Malnutrition Findings: Nutrition Notes Start: 08/15/19 08:59 Freq: Status: Active Protocol: Document 08/15/19 08:59 LP (Rec: 08/15/19 09:03 LP [id number]) Nutrition Notes Need for Assessment generated from: research contracts supervisor Initial or Follow up Assessment Other Pertinent Diagnosis Schizophrenia, hypotension Current Diet Cardiac Labs/Tests BUN 35 Cr 2 Pertinent Medications NS at 125ml/hr Height 6 ft Weight 80.7 kg [place] Body Weight (kg) 80.90 BMI 24.1 Weight Status Appropriate Subjective/Other Information Screen for MST. Unable to see pt at time of visit. Noted with bilateral weak special education curriculum specialist. Dylon (16). No intakes recorded. Burn Absent Trauma Absent GI Symptoms None Current % PO Negligible Minimum of two criteria No Reduced Senior Web Architect Strength Measurably Reduced (severe) #1 Nutrition Diagnosis Predicted suboptimal energy intake Etiology Advanced age As Evidenced by Signs and Symptoms Unable to obtain nutrition hx and no meals recorded. Is patient on ventilator? No Is Patient Ambulatory and/or Out of Bed No REE-([facility]-confined to bed) 193.[address] Used for Recommendations [facility] Additional Notes Protein needs are 81-97g (1-1. 2g/kg) Fluid needs are 1ml/kcal Nutrition Intervention Change Diet Order: Continue Add Supplement/Snack (indicate name/kcal Ensure Enlive Daily /protein ) Provides kCal: 350 Provides Protein (gm) 20 Goal #1 Meet at least 80% of kcal and protein needs Anticipated Discharge Needs: Cardiac diet Follow-Up By: 08/21/19 Additional Comments Follow for intakes
[2019-08-16] MEDS: SERTRALINE 25 MG TAB PO SCH (18:07)
[2019-08-17] MEDS: HEPARIN 5,000 UNIT/1 ML VIAL SUB-Q SCH (06:04)
[2019-08-17] MEDS: SODIUM CHLORIDE 0.9% 1000 ML 1,000 ML IV SCH (06:07)
--- NOTE | 2019-08-17 06:57 | Progress Note ---
Subjective Date of service: 08/17/19 Subjective Comment: Per Psych Nurse: Psych Progress HPI In my interview with the patient this morning, the patient reports mood as "". Appetite is . Sleep last night was . Patient denies current SI, HI, AH, VH, and contracts to ask the staff for help if any of these symptoms increase Reason for continuing inpatient treatment: Review of Symptoms: Constitutional: Negative for weight loss ENT: Negative for stridor Respiratory: Negative for cough or hemoptysis All other systems reviewed and are negative MENTAL STATUS EXAMINATION General Appearance and Behavior: Age appropriate, poor/fair/good hygiene, wearing appropriate clothes, lying in bed, good/poor eye contact, cooperative/uncooperative with questioning and polite/irritable Cooperation: Participating/engaged, Withdrawn, Isolative, Threatening, Cooperative, Hostile and Guarded Psychomotor Behavior: Psychomotor agitation, psychomotor retardation, unremarkable and within normal limits Mood: Good, OK, Anxious, Depressed, Great, I don't know and so-so Affect and affective range: Angry, anxious, constricted, decreased range, depressed, dysthymic, euphoric, euthymic, irritable, labile and sad Thought Process: Fluent/Logical, Tangential, Circumstantial, Perseverative, Illogical, Goal-directed, Rambling, Pressured, Blocked, Fragmented and Loose associations Thought Content: Within reality, Poverty, Obsessions, Flight of ideas, Illogical, Grandiose, Phobia Paranoid, Ideas of reference, Hallucinations including auditory, visual, tactile and olfactory, Hopelessness, Helplessness, Phobia and Paranoid Speech: Normal volume, Regular rate and rhythm, pressured, loud volume, soft vo lume, stutter, paucity of speech, difficulty to understand, abnormalities in production of speech, confused and blocking Intellectual Functioning: Average Suicidal Ideation: Denies SI/Suicidal Homicidal Ideation: Denies HI/Homicidal Impulse Control: Impaired/Unimpaired Insight and Judgment: Normal insight and judgment, Limited insight and judgment, Impaired Memory: Normal, Short term memory intact, Short term memory impaired, hose suspender cutter memory intact, penitentiary memory impaired, Prospective memory intact and Prospective memory impaired Attention: Normal, Distractible, Sustained attention intact, Sustained attention impaired, Divided attention intact and Divided attention impaired Orientation: Alert, oriented, anxious, confused, delirious and demented Treatment Plan: Due to the psychiatric conditions and treatment listed in the Assessment and Plan - the patient requires continued hospitalization. Will continue inpatient treatment to allow for medication adjustment and monitoring. Will continue q15 min safety checks. Will encourage the use of environmental modifications and non-pharmacologic approaches for the management of behavioral and psychological symptoms. Will continue current psych medications Monitor for medication side effects. Most recent medication adjustments: The patient will continue on medications for physical illnesses, and Hospitalist will closely monitor these Continue intensive physical and occupational therapies. Monitor patient's mood, sleep, appetite, and behavior closely. Encourage patient to participate in individual and group therapeutic sessions on the stark. Will provide a safe and therapeutic environment for patient. Medications and Allergies Allergies Allergy/AdvReac Type Severity Reaction Status Date / Time No Known Allergies Allergy Unverified 08/10/19 18:16 Home Medications Medication Instructions Recorded Confirmed Last Taken Type Apixaban [Eliquis] 5 mg PO BID 08/11/19 08/15/19 Unknown History Budesonide-Formoterol 160-4.5 2 puff PO BID 08/11/19 08/15/19 Unknown History Divalproex ER [DepaKOTE ER] 500 mg PO BID 08/11/19 08/15/19 08/14/19 21:47 History Eliquis 5 mg PO BID 08/11/19 08/15/19 Unknown History Furosemide [Lasix TAB] 40 mg PO BID 08/11/19 08/15/19 08/14/19 21:48 History Metoprolol SUCCINATE ER TAB 200 mg PO DAILY 08/11/19 08/15/19 Unknown History Vitamin B12 1,000 mcg PO DAILY 08/11/19 08/15/19 Unknown History busPIRone [Buspar] 5 mg PO BID 08/11/19 08/15/19 08/14/19 21:46 History lisinopriL [Zestril] 20 mg PO QDAY 08/11/19 08/15/19 08/14/19 10:50 History polyethylene glycoL 3350 [Miralax 17 gram PO DAILY 08/11/19 08/15/19 Unknown History 3350] risperiDONE [RisperDAL] 1 mg PO DAILY 08/11/19 08/15/19 Unknown History risperiDONE [RisperDAL] 2 mg PO HS 08/11/19 08/15/19 Unknown History Active Meds: Active Medications Acetaminophen (Tylenol) 650 mg PO Q6H PRN PRN Reason: Pain MILD(1-3)/Fever >100.5/DENNIS Famotidine (Pepcid) 20 mg PO QDAY [facility] Last Admin: 08/16/19 11:04 Dose: 20 mg Documented by: Heparin Sodium (Porcine) (Heparin) 5,000 unit SUB-Q Q8HR [facility] Last Admin: 08/17/19 06:04 Dose: 5,000 unit Documented by: Sodium Chloride (Nacl 0.9% 1000 Ml) 1,000 mls @ 125 mls/hr IV DIRECT [facility] Last Admin: 08/17/19 06:07 Dose: 125 mls/hr Documented by: Valproate Sodium 500 mg/ (Sodium Chloride) 105 mls @ 100 mls/hr IV Q12HR [facility] Last Admin: 08/16/19 21:59 Dose: 100 mls/hr Documented by: Magnesium Hydroxide (Milk Of Magnesia) 30 ml PO Q4H PRN PRN Reason: Constipation Ondansetron HCl (Zofran) 4 mg IV Q8H PRN PRN Reason: Nausea And Vomiting Sertraline HCl (Zoloft) 25 mg PO QDAY [facility] Last Admin: 08/16/19 18:07 Dose: 25 mg Documented by: Sodium Chloride (Sodium Chloride Flush Syringe 10 Ml) 10 ml IV BID [facility] Last Admin: 08/16/19 21:59 Dose: 10 ml Documented by: Sodium Chloride (Sodium Chloride Flush Syringe 10 Ml) 10 ml IV PRN PRN PRN Reason: LINE FLUSH Tamsulosin HCl (Flomax) 0.4 mg PO QDAY [facility] Last Admin: 08/16/19 11:04 Dose: 0.4 mg Documented by: Results - Results Labs/Vitals: Laboratory Last Values WBC 3.1 K/mm3 (4.5-11.0) L 08/16/19 05:26 RBC 3.42 M/mm3 (3.65-5.03) L 08/16/19 05:26 Hgb 11.2 gm/dl (11.8-15.2) L 08/16/19 05:26 Hct 34.4 % (35.5-45.6) L 08/16/19 05:26 MCV 101 fl (84-94) H 08/16/19 05:26 MCH 33 pg (28-32) H 08/16/19 05:26 MCHC 33 % (32-34) 08/16/19 05:26 RDW 17.0 % (13.2-15.2) H 08/16/19 05:26 Plt Count 81 K/mm3 (140-440) L 08/16/19 05:26 Morris % (Auto) Hot Dimpling Machine Operator 08/16/19 05:26 Add Manual Diff Complete 08/16/19 05:26 Total Counted 100 08/16/19 05:26 Seg Neutrophils % Hot Dimpling Machine Operator 08/15/19 02:36 Seg Neuts % (Manual) 38.0 % (40.0-70.0) L 08/16/19 05:26 Band Neutrophils % 5.0 % 08/16/19 05:26 Lymphocytes % (Manual) 25.0 % (13.4-35.0) 08/16/19 05:26 Reactive Lymphs % (Man) 0 % 08/16/19 05:26 Monocytes % (Manual) 26.0 % (0.0-7.3) H 08/16/19 05:26 Eosinophils % (Manual) 0 % (0.0-4.3) 08/16/19 05:26 Basophils % (Manual) 0 % (0.0-1.8) 08/16/19 05:26 Metamyelocytes % 3.0 % 08/16/19 05:26 Myelocytes % 3.0 % 08/16/19 05:26 Promyelocytes % 0 % 08/16/19 05:26 Blast Cells % 0 % 08/16/19 05:26 Nucleated RBC % Not Reportable 08/16/19 05:26 Seg Neutrophils # Man 1.2 K/mm3 (1.8-7.7) L 08/16/19 05:26 Band Neutrophils # 0.2 K/mm3 08/16/19 05:26 Lymphocytes # (Manual) 0.8 K/mm3 (1.2-5.4) L 08/16/19 05:26 Abs React Lymphs (Man) 0.0 K/mm3 08/16/19 05:26 Monocytes # (Manual) 0.8 K/mm3 (0.0-0.8) 08/16/19 05:26 Eosinophils # (Manual) 0.0 K/mm3 (0.0-0.4) 08/16/19 05:26 Basophils # (Manual) 0.0 K/mm3 (0.0-0.1) 08/16/19 05:26 Metamyelocytes # 0.1 K/mm3 08/16/19 05:26 Myelocytes # 0.1 K/mm3 08/16/19 05:26 Promyelocytes # 0.0 K/mm3 08/16/19 05:26 Blast Cells # 0.0 K/mm3 08/16/19 05:26 WBC Morphology Not Reportable 08/16/19 05:26 Hypersegmented Neuts Not Reportable 08/16/19 05:26 Hyposegmented Neuts Not Reportable 08/16/19 05:26 Hypogranular Neuts Not Reportable 08/16/19 05:26 Smudge Cells Not Reportable 08/16/19 05:26 Toxic Granulation Not Reportable 08/16/19 05:26 Toxic Vacuolation Not Reportable 08/16/19 05:26 Dohle Bodies Not Reportable 08/16/19 05:26 Pelger-Huet Anomaly Not Reportable 08/16/19 05:26 Maxwell Rods Not Reportable 08/16/19 05:26 Platelet Estimate Consistent w auto 08/16/19 05:26 Clumped Platelets Rare 08/16/19 05:26 Plt Clumps, EDTA Not Reportable 08/16/19 05:26 Large Platelets Not Reportable 08/16/19 05:26 Giant Platelets Not Reportable 08/16/19 05:26 Platelet Satelliting Not Reportable 08/16/19 05:26 Plt Morphology Comment Not Reportable 08/16/19 05:26 RBC Morphology Not Reportable 08/16/19 05:26 Dimorphic RBCs Not Reportable 08/16/19 05:26 Polychromasia Not Reportable 08/16/19 05:26 Hypochromasia Few 08/16/19 05:26 Poikilocytosis Not Reportable 08/16/19 05:26 Anisocytosis 1+ 08/16/19 05:26 Microcytosis Not Reportable 08/16/19 05:26 Macrocytosis 1+ 08/16/19 05:26 Spherocytes Not Reportable 08/16/19 05:26 Pappenheimer Bodies Not Reportable 08/16/19 05:26 Sickle Cells Not Reportable 08/16/19 05:26 Target Cells Not Reportable 08/16/19 05:26 Tear Drop Cells Not Reportable 08/16/19 05:26 Ovalocytes Not Reportable 08/16/19 05:26 Helmet Cells Not Reportable 08/16/19 05:26 [place] Bodies Not Reportable 08/16/19 05:26 [place] Rings Not Reportable 08/16/19 05:26 Boling Cells Not Reportable 08/16/19 05:26 Bite Cells Not Reportable 08/16/19 05:26 Crenated Cell Not Reportable 08/16/19 05:26 Elliptocytes Not Reportable 08/16/19 05:26 Acanthocytes (Spur) Not Reportable 08/16/19 05:26 Rouleaux Not Reportable 08/16/19 05:26 Hemoglobin C Crystals Not Reportable 08/16/19 05:26 Schistocytes Not Reportable 08/16/19 05:26 Malaria parasites Not Reportable 08/16/19 05:26 Davian Bodies Not Reportable 08/16/19 05:26 Hem Pathologist Commnt No 08/16/19 05:26 PT 17.9 Sec. (12.2-14.9) H 08/16/19 05:26 INR 1.52 (0.87-1.13) H 08/16/19 05:26 Sodium 142 mmol/L (137-145) 08/16/19 05:26 Potassium 3.7 mmol/L (3.6-5.0) 08/16/19 05:26 Chloride 105.1 mmol/L (98-107) 08/16/19 05:26 Carbon Dioxide 26 mmol/L (22-30) 08/16/19 05:26 Anion Gap 15 mmol/L 08/16/19 05:26 BUN 27 mg/dL (9-20) H 08/16/19 05:26 Creatinine 1.1 mg/dL (0.8-1.5) 08/16/19 05:26 Estimated GFR > 60 ml/min 08/16/19 05:26 BUN/Creatinine Ratio 25 % 08/16/19 05:26 Glucose 81 mg/dL (75-100) 08/16/19 05:26 Calcium 8.1 mg/dL (8.4-10.2) L 08/16/19 05:26 Phosphorus 4.00 mg/dL (2.5-4.5) 08/15/19 16:50 Magnesium 1.90 mg/dL (1.7-2.3) 08/15/19 16:50 Last Vital Signs Temp 98.0 F 08/17/19 04:14 Pulse 97 H 08/17/19 05:00 Resp 18 08/17/19 04:14 BP 146/91 08/17/19 04:14 Pulse Ox 92 08/17/19 04:14
--- NOTE | 2019-08-17 08:18 | Discharge Summary ---
Providers - Providers Date of Admission: 08/15/19 00:07 Attending physician: EVERTON SOLER MD 08/15/19 00:25 Consult to Physician [CONS] Routine Comment: Consulting Provider: GUSTAVO MARSH Physician Instructions: Reason For Exam: hypotension,dementia with agitation, schizophrenia 08/15/19 01:15 Consult to Physician [CONS] Routine Comment: Consulting Provider: ENRIQUE LAMAS Physician Instructions: Reason For Exam: schizophrenia, agitation 08/15/19 12:15 Consult to Dietitian/Nutrition [CONS] Routine Physician Instructions: Reason For Exam: Reason for Consult: Malnutrition 08/15/19 14:10 Consult to Physician [CONS] Urgent Comment: Consulting Provider: HENRY TRIANA Physician Instructions: Reason For Exam: Retention of Urine 08/16/19 13:19 Occupational Therapy Evaluate and Treat [CONS] Routine Comment: Reason For Exam: DEBILITY Physical Therapy Evaluation and Treat [CONS] Routine Comment: Reason For Exam: DEBILITY Primary care physician: ENRIQUE LAMAS MD Hospitalization Reason for admission: Hypotension Hospital course: 69-year-old male with known history of schizophrenia who has been on admission i n the [facility] psych unit since 08/10/2019 for psychological evaluation. He has been found walking into oncoming traffic according to his record. He is being admitted from the [facility] psych unit to the medical unit because of low blood pressure. Call received from the psychiatrist requesting transfer to medical care in view of the hypotension. Blood pressure was said to be 60s systolic and 40s diastolic. Patient has been refusing oral intake. IV fluid not done in the [facility] psych unit. Patient appears slightly agitated and states he wants to . He also appears intermittently confused. He also initially declined getting an IV line placed by the medical staff. However I agreed to getting IV fluid upon further counseling. Patient cannot give me any good history. * Patient noted to have urinary retention and was seen by Urology with lozoya placed * 08/16: Awaiting placement. Home meds restarted, BB decreased dose considering Prior Low BP. Psych team cleared for discharge back to facility. (1) Hypotension Current Visit: Yes Status: Acute Plan to address problem: Possibly secondary to dehydration. Patient be placed on IV fluid. Will monitor vital signs closely. (2) Atrial fibrillation Current Visit: No Status: Acute Plan to address problem: Rate currently controlled. Patient on anticoagulation. (3) Schizophrenia Current Visit: No Status: Acute Plan to address problem: We will continue patient's routine home medications. Will appreciate follow-up by psychiatrist (4) BPH Retention noted urology contacted and lozoya placed and recommended to discharge with same wire lozoya 16f three affiliated tip with kieran colored urine (6) VIMAL SECONDARY TO ATN (7)SIRS WITH NO ORGAN DYSFUNCTION Disposition: DC/[place]-[address] [facility] Time spent for discharge: 35 MINS Core Measure Documentation - Palliative Care Palliative Care/ Comfort Measures: Not Applicable - Core Measures Any of the following diagnoses?: none Exam - Physical Exam Narrative exam: General appearance: Present: no acute distress, well-nourished, lethargic - EENT Eyes: Present: PERRL, EOM intact ENT: hearing intact, clear oral mucosa, dentition normal - Neck Neck: Present: supple, normal ROM - Respiratory Respiratory effort: normal Respiratory: bilateral: CTA - Cardiovascular Rhythm: irregularly irregular Heart Sounds: Present: S1 & S2 - Extremities Extremities: no ischemia, pulses intact, pulses symmetrical, No edema, Full ROM Peripheral Pulses: within normal limits - Abdominal General gastrointestinal: Present: abdominal scar, soft, non-tender, non- distended, normal bowel sounds - Integumentary Integumentary: Present: clear, warm, dry - Psychiatric Psychiatric: calm - Neurologic Neurologic: CNII-XII intact, moves all extremities - Constitutional Vitals: Temp Pulse Resp BP Pulse Ox 99.0 F 105 H 20 152/90 89 08/17/19 07:26 08/17/19 07:26 08/17/19 07:26 08/17/19 07:26 08/17/19 07:26 Plan Follow up with: ENRIQUE LAMAS MD [Primary Care Provider] - 7 Days FANI VIDAL MD [Staff Physician] - 7 Days Prescriptions: Arformoterol Nebu [Brovana Nebu] 15 mcg IH Q12HRT #30 ml VALPROIC ACID Liq [DepaKENE Liq] 500 mg PO BID #100 udc Tamsulosin [Flomax] 0.4 mg PO QDAY #30 capsule Furosemide [Lasix TAB] 40 mg PO DAILY #30 Metoprolol Xl [Metoprolol SUCCINATE ER TAB] 100 mg PO QDAY #30 tablet Famotidine [Pepcid] 20 mg PO QDAY #30 tablet Budesonide [Pulmicort Respules] 0.5 mg IH Q12HRT #30 nebu Sertraline [Zoloft] 25 mg PO QDAY #30 tablet
[2019-08-17] MEDS ORDERED: BUDESONIDE 0.5 MG/2 ML NEBU IH SCH (09:00)
[2019-08-17] MEDS ORDERED: ARFORMOTEROL 15 MCG/2 ML NEBU IH SCH (09:00)
[2019-08-17] MEDS ORDERED: METOPROLOL SUCCINATE XL 100 MG TAB PO SCH (10:00)
[2019-08-17] MEDS ORDERED: FUROSEMIDE 40 MG TAB PO SCH (10:00)
[2019-08-17] MEDS ORDERED: LISINOPRIL 20 MG TAB PO SCH (10:00)
[2019-08-17] MEDS ORDERED: busPIRone 5 MG TAB PO SCH (10:00)
[2019-08-17] MEDS ORDERED: APIXABAN 5 MG TAB PO SCH (10:00)
[2019-08-17] MEDS ORDERED: METOPROLOL SUCCINATE 200 MG PO SCH (10:00)
[2019-08-17] MEDS ORDERED: NON-FORMULARY EACH (Budesonide-Formoterol 160-4.5 2 PUFF) PO SCH (10:00)
[2019-08-17] MEDS ORDERED: METOPROLOL SUCCINATE 100 MG PO SCH (10:00)
[2019-08-17] MEDS ORDERED: DIVALPROEX ER 500 MG TAB PO SCH (10:00)
[2019-08-17] MEDS ORDERED: POLYETHYLENE GLYCOL 3350 17 GM POWDER PO SCH (10:00)
[2019-08-17] MEDS: TAMSULOSIN 0.4 MG CAP PO SCH (11:50)
[2019-08-17] MEDS: FAMOTIDINE 20 MG TAB PO SCH (11:51)
[2019-08-17] MEDS: SERTRALINE 25 MG TAB PO SCH (11:52)
--- NOTE | 2019-08-17 11:52 | Progress Note ---
Assessment and Plan Hypotension Intravascular volume depletion. Acute kidney injury, likely prerenal. Schizophrenia. Anemia that is macrocytic. History of atrial fibrillation. Sleep apnea. Posttraumatic stress disorder. Cardiomyopathy. -Continue with gentle IVF while monitoring hemodynamics and respiratory status -Anticoagulated for Afib, currently rate controlled -Adjust cardiac medications and titrate fro better blood pressure and hemodynamics -Supplemental oxygen as indicated to keep O2 sats >92% -Monitor and trend renal function -Avoid nephrotoxins, adjust all medications for GFR and CrCL -Does not appear to have sepsis as a cause for his hypotension -Monitor CBC, trend temperature curve -All chronic medications as clinically indicated -All other care as per primary and consulting physicians -Will continue to monitor closely Subjective Date of service: 08/17/19 Principal diagnosis: Hypotension; IVVD; VIMAL; Schizophrenia; Anemia; Afib; TERE Interval history: Patient is seen today for: Hypotension; IVVD; VIMAL; Schizophrenia; Anemia; Afib; TERE Seen and examined at bedside; 24hour events reviewed; nursing and respiratory care staff consulted; no adverse overnight events reported to me; resting peacefully in bed; No N/V/F/C Objective Vital Signs - 12hr 08/17/19 08/17/19 08/17/19 04:14 05:00 07:26 Temperature 98.0 F 99.0 F Pulse Rate 115 H 97 H 105 H Pulse Rate [ Bilateral Throughout] Respiratory 18 20 Rate Respiratory Rate [Bilateral Throughout] Blood Pressure 146/91 152/90 O2 Sat by Pulse 92 89 Oximetry 08/17/19 08/17/19 08:44 08:45 Temperature Pulse Rate Pulse Rate [ 106 H Bilateral Throughout] Respiratory Rate Respiratory 16 Rate [Bilateral Throughout] Blood Pressure O2 Sat by Pulse 96 Oximetry Constitutional: no acute distress Eyes: non-icteric ENT: oropharynx moist Neck: supple, no lymphadenopathy Effort: normal, mildly labored Ascultation: Bilateral: diminished breath sounds, rhonchi Percussion: Bilateral: not dull Cardiovascular: regular rate and rhythm Gastrointestinal: normoactive bowel sounds, soft, non-tender Integumentary: rash Extremities: no cyanosis, pulses normal, no ischemia or petechiae Neurologic: pupils equal and round, CN II-XII normal Psychiatric: mood appropriate, affect normal CBC and BMP: 08/16/19 05:26 08/16/19 05:26 ABG, PT/INR, D-dimer: PT/INR, D-dimer PT 17.9 Sec. (12.2-14.9) H 08/16/19 05:26 INR 1.52 (0.87-1.13) H 08/16/19 05:26 Abnormal lab findings: Abnormal Labs 08/15/19 08/15/19 08/15/19 02:36 02:36 14:37 WBC RBC 3.50 L Hgb 11.5 L Hct 35.1 L MCV 100 H MCH 33 H RDW 16.8 H Plt Count 94 L Seg Neuts % (Manual) 24.0 L Lymphocytes % (Manual) 64.0 H Monocytes % (Manual) 12.0 H Seg Neutrophils # Man 1.2 L Lymphocytes # (Manual) PT INR Chloride 95.7 L BUN 35 H 37 H Creatinine 2.0 H D 1.6 H Calcium 8.1 L 08/16/19 08/16/19 08/16/19 05:26 05:26 05:26 WBC 3.1 L RBC 3.42 L Hgb 11.2 L Hct 34.4 L MCV 101 H MCH 33 H RDW 17.0 H Plt Count 81 L Seg Neuts % (Manual) 38.0 L Lymphocytes % (Manual) Monocytes % (Manual) 26.0 H Seg Neutrophils # Man 1.2 L Lymphocytes # (Manual) 0.8 L PT 17.9 H INR 1.52 H Chloride BUN 27 H Creatinine Calcium 8.1 L Allied health notes reviewed: nursing
[2019-08-17] MEDS: VALPROATE SODIUM 500 MG in SODIUM CHLORIDE 0.9% 100 ML IV SCH (12:01)
--- NOTE | 2019-08-17 15:24 | Progress Note ---
Assessment and Plan Assessment and plan: 69-year-old male with known history of schizophrenia who has been on admission in the [facility] psych unit since 08/10/2019 for psychological evaluation. He has been found walking into oncoming traffic according to his record. He is being admitted from the [facility] unit to the medical unit because of low blood pressure. Call received from the psychiatrist requesting transfer to medical care in view of the hypotension. Blood pressure was said to be 60s systolic and 40s diastolic. Patient has been refusing oral intake. IV fluid not done in the [facility] psych unit. Patient appears slightly agitated and states he wants to . He also appears intermittently confused. He also initially declined getting an IV line placed by the medical staff. However I agreed to getting IV fluid upon further area counselor ing. Patient cannot give me any good history. * Patient noted to have urinary retention and was seen by Urology with lozoya placed * 08/16: Awaiting placement. Home meds restarted, BB decreased dose considering Prior Low BP. Psych team cleared for discharge back to facility. - Patient Problems (1) Hypotension Current Visit: Yes Status: Acute Plan to address problem: Possibly secondary to dehydration. Patient be placed on IV fluid. Will monitor vital signs closely. (2) Atrial fibrillation Current Visit: No Status: Acute Plan to address problem: Rate currently controlled. Patient on anticoagulation. (3) Schizophrenia Current Visit: No Status: Acute Plan to address problem: We will continue patient's routine home medications. Will appreciate follow-up by psychiatrist (4) BPH Retention noted urology contacted and lozoya placed and recommended to discharge with same wire lozoya 16f robinson tip with kieran colored urine (5) DVT prophylaxis Current Visit: Yes Status: Acute Plan to address problem: Patient currently on anticoagulation. (5) Full code status Current Visit: Yes Status: Acute History Interval history: Patient seen and examined, no new issues Hospitalist Physical - Physical exam Narrative exam: General appearance: Present: no acute distress, well-nourished, lethargic - EENT Eyes: Present: PERRL, EOM intact ENT: hearing intact, clear oral mucosa, dentition normal - Neck Neck: Present: supple, normal ROM - Respiratory Respiratory effort: normal Respiratory: bilateral: CTA - Cardiovascular Rhythm: irregularly irregular Heart Sounds: Present: S1 & S2 - Extremities Extremities: no ischemia, pulses intact, pulses symmetrical, No edema, Full ROM Peripheral Pulses: within normal limits - Abdominal General gastrointestinal: Present: abdominal scar, soft, non-tender, non- distended, normal bowel sounds - Integumentary Integumentary: Present: clear, warm, dry - Psychiatric Psychiatric: calm - Neurologic Neurologic: CNII-XII intact, moves all extremities - Constitutional Vitals: Temp Pulse Resp BP Pulse Ox 98.0 F 109 H 18 163/104 95 08/17/19 11:45 08/17/19 11:45 08/17/19 11:45 08/17/19 11:45 08/17/19 11:45 General appearance: Present: no acute distress, well-nourished, other (Dry oral mucosa) Results - Labs CBC & Chem 7: 08/16/19 05:26 08/16/19 05:26 Labs: Laboratory Last Values WBC 3.1 K/mm3 (4.5-11.0) L 08/16/19 05:26 RBC 3.42 M/mm3 (3.65-5.03) L 08/16/19 05:26 Hgb 11.2 gm/dl (11.8-15.2) L 08/16/19 05:26 Hct 34.4 % (35.5-45.6) L 08/16/19 05:26 MCV 101 fl (84-94) H 08/16/19 05:26 MCH 33 pg (28-32) H 08/16/19 05:26 MCHC 33 % (32-34) 08/16/19 05:26 RDW 17.0 % (13.2-15.2) H 08/16/19 05:26 Plt Count 81 K/mm3 (140-440) L 08/16/19 05:26 Warren % (Auto) Sort Worker 08/16/19 05:26 Add Manual Diff Complete 08/16/19 05:26 Total Counted 100 08/16/19 05:26 Seg Neutrophils % Sort Worker 08/15/19 02:36 Seg Neuts % (Manual) 38.0 % (40.0-70.0) L 08/16/19 05:26 Band Neutrophils % 5.0 % 08/16/19 05:26 Lymphocytes % (Manual) 25.0 % (13.4-35.0) 08/16/19 05:26 Reactive Lymphs % (Man) 0 % 08/16/19 05:26 Monocytes % (Manual) 26.0 % (0.0-7.3) H 08/16/19 05:26 Eosinophils % (Manual) 0 % (0.0-4.3) 08/16/19 05:26 Basophils % (Manual) 0 % (0.0-1.8) 08/16/19 05:26 Metamyelocytes % 3.0 % 08/16/19 05:26 Myelocytes % 3.0 % 08/16/19 05:26 Promyelocytes % 0 % 08/16/19 05:26 Blast Cells % 0 % 08/16/19 05:26 Nucleated RBC % Not Reportable 08/16/19 05:26 Seg Neutrophils # Man 1.2 K/mm3 (1.8-7.7) L 08/16/19 05:26 Band Neutrophils # 0.2 K/mm3 08/16/19 05:26 Lymphocytes # (Manual) 0.8 K/mm3 (1.2-5.4) L 08/16/19 05:26 Abs React Lymphs (Man) 0.0 K/mm3 08/16/19 05:26 Monocytes # (Manual) 0.8 K/mm3 (0.0-0.8) 08/16/19 05:26 Eosinophils # (Manual) 0.0 K/mm3 (0.0-0.4) 08/16/19 05:26 Basophils # (Manual) 0.0 K/mm3 (0.0-0.1) 08/16/19 05:26 Metamyelocytes # 0.1 K/mm3 08/16/19 05:26 Myelocytes # 0.1 K/mm3 08/16/19 05:26 Promyelocytes # 0.0 K/mm3 08/16/19 05:26 Blast Cells # 0.0 K/mm3 08/16/19 05:26 WBC Morphology Not Reportable 08/16/19 05:26 Hypersegmented Neuts Not Reportable 08/16/19 05:26 Hyposegmented Neuts Not Reportable 08/16/19 05:26 Hypogranular Neuts Not Reportable 08/16/19 05:26 Smudge Cells Not Reportable 08/16/19 05:26 Toxic Granulation Not Reportable 05/28/20 05:26 Toxic Vacuolation Not Reportable 08/16/19 05:26 Dohle Bodies Not Reportable 08/16/19 05:26 Pelger-Huet Anomaly Not Reportable 08/16/19 05:26 Maxwell Rods Not Reportable 08/16/19 05:26 Platelet Estimate Consistent w auto 08/16/19 05:26 Clumped Platelets Rare 08/16/19 05:26 Plt Clumps, EDTA Not Reportable 08/16/19 05:26 Large Platelets Not Reportable 08/16/19 05:26 Giant Platelets Not Reportable 08/16/19 05:26 Platelet Satelliting Not Reportable 08/16/19 05:26 Plt Morphology Comment Not Reportable 08/16/19 05:26 RBC Morphology Not Reportable 08/16/19 05:26 Dimorphic RBCs Not Reportable 08/16/19 05:26 Polychromasia Not Reportable 08/16/19 05:26 Hypochromasia Few 08/16/19 05:26 Poikilocytosis Not Reportable 08/16/19 05:26 Anisocytosis 1+ 08/16/19 05:26 Microcytosis Not Reportable 08/16/19 05:26 Macrocytosis 1+ 08/16/19 05:26 Spherocytes Not Reportable 08/16/19 05:26 Pappenheimer Bodies Not Reportable 08/16/19 05:26 Sickle Cells Not Reportable 08/16/19 05:26 Target Cells Not Reportable 08/16/19 05:26 Tear Drop Cells Not Reportable 08/16/19 05:26 Ovalocytes Not Reportable 08/16/19 05:26 Helmet Cells Not Reportable 08/16/19 05:26 Abraham-[place] Bodies Not Reportable 08/16/19 05:26 Sadler Rings Not Reportable 08/16/19 05:26 Christine Cells Not Reportable 08/16/19 05:26 Bite Cells Not Reportable 08/16/19 05:26 Crenated Cell Not Reportable 08/16/19 05:26 Elliptocytes Not Reportable 08/16/19 05:26 Acanthocytes (Spur) Not Reportable 08/16/19 05:26 Rouleaux Not Reportable 08/16/19 05:26 Hemoglobin C Crystals Not Reportable 08/16/19 05:26 Schistocytes Not Reportable 08/16/19 05:26 Malaria parasites Not Reportable 08/16/19 05:26 Davian Bodies Not Reportable 08/16/19 05:26 Hem Pathologist Commnt No 08/16/19 05:26 PT 17.9 Sec. (12.2-14.9) H 08/16/19 05:26 INR 1.52 (0.87-1.13) H 08/16/19 05:26 Sodium 142 mmol/L (137-145) 08/16/19 05:26 Potassium 3.7 mmol/L (3.6-5.0) 08/16/19 05:26 Chloride 105.1 mmol/L (98-107) 08/16/19 05:26 Carbon Dioxide 26 mmol/L (22-30) 08/16/19 05:26 Anion Gap 15 mmol/L 08/16/19 05:26 BUN 27 mg/dL (9-20) H 08/16/19 05:26 Creatinine 1.1 mg/dL (0.8-1.5) 08/16/19 05:26 Estimated GFR > 60 ml/min 08/16/19 05:26 BUN/Creatinine Ratio 25 % 08/16/19 05:26 Glucose 81 mg/dL (75-100) 08/16/19 05:26 Calcium 8.1 mg/dL (8.4-10.2) L 08/16/19 05:26 Phosphorus 4.00 mg/dL (2.5-4.5) 08/15/19 16:50 Magnesium 1.90 mg/dL (1.7-2.3) 08/15/19 16:50 Lozoya/IV: Voiding Method Indwelling Catheter IV Catheter Type [Right Hand] Peripheral IV Active Medications - Current Medications Current Medications: Generic Name Dose Route Start Last Admin Trade Name Freq PRN Reason Stop Dose Admin Acetaminophen 650 mg 08/15/19 00:25 Tylenol PO Q6H PRN Pain MILD(1-3)/Fever >100.5/DENNIS Apixaban 5 mg 08/17/19 10:00 08/17/19 11:50 Eliquis PO 5 mg BID LIT Administration Protocol Arformoterol Tartrate 15 mcg 08/17/19 09:00 08/17/19 08:44 Brovana Nebu IH 15 mcg Q12HRT LIT Administration Budesonide 0.5 mg 08/17/19 09:00 08/17/19 08:44 Pulmicort IH 0.5 mg Q12HRT LIT Administration Buspirone HCl 5 mg 08/17/19 10:00 08/17/19 11:51 Buspar PO 5 mg BID LIT Administration Divalproex Sodium 500 mg 08/17/19 10:00 08/17/19 12:02 Depakote Er PO 500 mg BID LIT Administration Famotidine 20 mg 08/16/19 10:00 08/17/19 11:51 Pepcid PO 20 mg QDAY LIT Administration Furosemide 40 mg 08/17/19 10:00 08/17/19 12:02 Lasix PO 40 mg 0600,1800 LIT Administration Sodium Chloride 1,000 mls @ 125 mls/hr 08/15/19 00:30 08/17/19 06:07 Nacl 0.9% 1000 Ml IV 125 mls/hr DIRECT LIT Administration Valproate Sodium 500 mg/ 105 mls @ 100 mls/hr 08/15/19 10:30 08/17/19 12:01 Sodium Chloride IV 100 mls/hr Q12HR LIT Administration Lisinopril 20 mg 08/17/19 10:00 08/17/19 11:51 Zestril PO 20 mg QDAY LIT Administration Magnesium Hydroxide 30 ml 08/15/19 00:25 Milk Of Magnesia PO Q4H PRN Constipation Metoprolol Succinate 100 mg 08/17/19 10:00 08/17/19 11:50 Metoprolol Xl PO 100 mg QDAY LIT Administration Ondansetron HCl 4 mg 08/15/19 00:25 Zofran IV Q8H PRN Nausea And Vomiting Polyethylene Glycol 17 gm 08/17/19 10:00 08/17/19 11:50 Miralax 3350 PO 17 gm DAILY LIT Administration Sertraline HCl 25 mg 08/16/19 12:00 08/17/19 11:52 Zoloft PO 25 mg QDAY LIT Administration Sodium Chloride 10 ml 08/15/19 10:00 08/17/19 11:51 Sodium Chloride Flush Syringe 10 Ml IV 10 ml BID LIT Administration Sodium Chloride 10 ml 08/15/19 00:25 Sodium Chloride Flush Syringe 10 Ml IV PRN PRN LINE FLUSH Tamsulosin HCl 0.4 mg 08/15/19 19:00 08/17/19 11:50 Flomax PO 0.4 mg QDAY LIT Administration Nutrition/Malnutrition Assess - Dietary Evaluation Nutrition/Malnutrition Findings: Nutrition Notes Start: 08/15/19 08:59 Freq: Status: Active Protocol: Document 08/15/19 08:59 LP (Rec: 08/15/19 09:03 LP [id number]) Nutrition Notes Need for 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 Unable to see pt at time of visit. Noted with bilateral weak track oiler. Dylon (16). No intakes recorded. 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 Is patient on ventilator? No Is Patient Ambulatory and/or Out of Bed No REE-([facility]-confined to bed) [phone] Calculation Used for Recommendations [facility] Additional Notes Protein needs are 81-97g (1-1. 2g/kg) Fluid needs are 1ml/kcal Nutrition Intervention Change Diet Order: Continue Add Supplement/Snack (indicate name/kcal Ensure Enlive Daily /protein ) Provides kCal: 350 Provides Protein (gm) 20 Goal #1 Meet at least 80% of kcal and protein needs Anticipated Discharge Needs: Cardiac diet Follow-Up By: 08/21/19 Additional Comments Follow for intakes
[2019-08-17 17:44] VITALS: BP 134/85
== END 2019-08-17 18:55 | DRG 683 ==
LOC: CC1 22:25 → UNDOADMIN 22:25 → CC1 08-15 00:07 → 4A 08-15 19:25
PROVIDERS: ADMIT Internal Medicine Geriatric Medicine; ATTEND Internal Medicine
DX: N17.0 Acute kidney failure with tubular necrosis (principal); I42.9 Cardiomyopathy, unspecified; R65.10 Systemic inflammatory response syndrome (SIRS) of non-infectious origin without acute organ dysfunction; I95.9 Hypotension, unspecified; F20.9 Schizophrenia, unspecified; I48.91 Unspecified atrial fibrillation; F43.10 Post-traumatic stress disorder, unspecified; N40.0 Benign prostatic hyperplasia without lower urinary tract symptoms; F32.9 Major depressive disorder, single episode, unspecified; E86.9 Volume depletion, unspecified; D64.9 Anemia, unspecified; G47.30 Sleep apnea, unspecified
CPT/HCPCS: 36415; 71045; 80048; 83735; 84100; 85007; 85025; 85610; 93005; 94640; 94760; G0378; J1644; J7030; J7040